=== PATIENT | male | born 1955 | race Caucasian/White ===

== ENCOUNTER 2016-12-31 09:43 | Emergency (ER) | payer OTHER ==
[~2016-12-31] VITALS: Ht 190.5 cm; Wt 101.0 kg
[~2016-12-31 09:43] MED LIST: AMIO200 PO; CETI10 PO; DIVA500T8 PO; FLUV100C PO; FOLI1 PO; OMEP20TA39 PO; TRAZ100T4 PO; [UNRECOGNIZED DRUG - CODE] PO
[2016-12-31 09:45] VITALS: BP 123/68; PULSE 54; RESP 16; TEMP 98.1; O2SAT 98
[2016-12-31] MEDS ORDERED: METO50TA PO (10:04)
[2016-12-31] MEDS ORDERED: FOLI1TAB6 (10:04)
[2016-12-31] MEDS ORDERED: MULTTAB67 PO (10:04)
[2016-12-31] MEDS ORDERED: FLUV1CAP PO (10:04)
[2016-12-31] MEDS ORDERED: TRAZ1TAB45 (10:04)
[2016-12-31] MEDS ORDERED: VITA100T54 PO (10:04)
[2016-12-31] MEDS ORDERED: PRIL20TA2 (10:04)
[2016-12-31] MEDS ORDERED: DEPA500T3 PO (10:04)
[2016-12-31] MEDS ORDERED: CETI10CH CHEW (10:04)
[2016-12-31] MEDS ORDERED: ASPI81CH CHEW (10:04)
[2016-12-31] MEDS ORDERED: IBUP-232 PO (10:04)
[2016-12-31] MEDS ORDERED: SODIUM CHLOR 0.9% 1000 ML INJ 1,000 ML IV SCH (10:37)
--- NOTE | 2016-12-31 10:44 | PD ---
HPI Chief Complaint: GI Complaint Time Seen by Provider: 10:27 Travel History International Travel<30 days: No Contact w/Intl Traveler<30days: No Traveled to known affect area: No History of Present Illness HPI 61-year-old male complains of abdominal pain with nausea. Patient states the symptoms started last night. Patient states the pain cramping pain and sharp pain mostly around the periumbilical area and lower abdomen. Patient denies any pain radiation. Patient denies any fever chills. Patient denies any back pain. Patient has history of diverticulitis, status post exploratory laparotomy with lysis of adhesion, segmental colon resection and low pelvic anastomosis and closure of colostomy in the past. On a scale of 1-10 the pain is an 8. Patient has history of atrial fibrillation. Patient on aspirin 81 mg daily. PFSH Past Medical History Bipolar Disorder: Yes Anxiety: Yes Depression: No Cancer: No Cardiovascular Problems: No Chemotherapy: No Diminished Hearing: No Diverticulitis: Yes Endocrine: No Gastrointestinal Disorders: Yes ( ) Genitourinary: No Immune Disorder: No Musculoskeletal: No Neurologic: No Psychiatric: Yes Reproductive: No Respiratory: No Radiation Therapy: No Past Surgical History Abdominal Surgery: Yes (colon surgery, appendicitis) Appendectomy: Yes Cardiac Surgery: No Ear Surgery: No Endocrine Surgery: No Eye Surgery: No Genitourinary Surgery: No Oral Surgery: No Thoracic Surgery: No Other Surgery: Yes (colostomy reversal) Social History Alcohol Use: No (Hx DAILY) Tobacco Use: No Substance Use: No Allergies-Medications (Allergen,Severity, Reaction): Coded Allergies: No Known Allergies (Verified , 11/27/15) Reported Meds & Prescriptions Reported Meds & Active Scripts Active [place] (Hydrocodone-Acetaminophen) 5-325 mg Tab 1 Tab PO Q6H PRN Reported Trazodone HCl 150 Mg Tablet 200 HS Folic Acid 1 Mg Tablet DAILY Fluvoxamine ER (Fluvoxamine Maleate) 100 Mg Caper 200 Mg PO HS Cetirizine (Cetirizine HCl) 10 Mg Chew 10 Mg CHEW DAILY Depakote ER (Divalproex Sodium) 500 Mg Nancy 1,000 Mg PO HS Ibuprofen 600 Mg Tab 600 Mg PO Q6H PRN Prilosec (Omeprazole Magnesium) 20 Mg Tab DAILY Aspirin 81 Mg Chew 81 Mg CHEW DAILY Metoprolol Tartrate 50 Mg Tab 50 Mg PO DAILY Vitamin B-1 (Thiamine HCl) 100 Mg Tab 100 Mg PO DAILY Multiple Vitamin 1 Tab 1 Tab PO DAILY Review of Systems General / Constitutional: No: Fever Eyes: No: Visual changes HENT: No: Headaches Cardiovascular: No: Chest Pain or Discomfort Respiratory: No: Shortness of Breath Gastrointestinal: Positive: Nausea, Abdominal Pain Genitourinary: No: Dysuria Musculoskeletal: No: Pain Skin: No Rash Neurologic: No: Weakness Psychiatric: No: Depression Endocrine: No: Polydipsia Hematologic/Lymphatic: No: Easy Bruising Physical Exam Narrative GENERAL: Well-nourished, well-developed patient. SKIN: Focused skin assessment warm/dry. HEAD: Normocephalic. EYES: No scleral icterus. No injection or drainage. NECK: Supple, trachea midline. No JVD or lymphadenopathy. CARDIOVASCULAR: Regular rate and rhythm without murmurs, gallops, or rubs. RESPIRATORY: Breath sounds equal bilaterally. No accessory muscle use. GASTROINTESTINAL: Abdomen soft, nondistended. Patient has mild to moderate tenderness on palpation periumbilical area and lower abdomen area. No rebound tenderness. No mass. MUSCULOSKELETAL: No cyanosis, or edema. BACK: Nontender without obvious deformity. No CVA tenderness. Neurologic exam normal. Data Data Last Documented VS Vital Signs Date Time Temp Pulse Resp B/P Pulse Ox O2 Delivery O2 Flow Rate FiO2 12/31/16 12:44 55 20 134/74 95 Room Air 12/31/16 09:45 98.1 Orders Complete Blood Count With Diff (12/31/16 10:37) Comprehensive Metabolic Panel (12/31/16 10:37) Prothrombin Time / Inr (Pt) (12/31/16 10:37) Act Partial Throm Time (Ptt) (12/31/16 10:37) Urinalysis - C+S If Indicated (12/31/16 10:37) Ct Abd/Pel W Iv Contrast(Rout) (12/31/16 10:37) Iv Access Insert/Monitor (12/31/16 10:37) Ecg Monitoring (12/31/16 10:37) Oximetry (12/31/16 10:37) Morphine Inj (Morphine Inj) (12/31/16 10:45) Ondansetron Inj (Zofran Inj) (12/31/16 10:45) Pantoprazole Inj (Protonix Inj) (12/31/16 10:45) Sodium Chlor 0.9% 1000 Ml Inj (Ns 1000 M (12/31/16 10:37) Electrocardiogram (12/31/16 10:37) Morphine Inj (Morphine Inj) (12/31/16 12:15) Iohexol 350 Inj (Omnipaque 350 Inj) (12/31/16 12:33) Labs Laboratory Tests Test 12/31/16 11:00 White Blood Count 8.0 TH/MM3 Red Blood Count 5.56 MIL/MM3 Hemoglobin 15.0 GM/DL Hematocrit 46.1 % Mean Corpuscular Volume 82.9 FL Mean Corpuscular Hemoglobin 27.0 PG Mean Corpuscular Hemoglobin 32.5 % Concent Red Cell Distribution Width 15.3 % Platelet Count 142 TH/MM3 Mean Platelet Volume 7.8 FL Neutrophils (%) (Auto) 79.7 % Lymphocytes (%) (Auto) 14.1 % Monocytes (%) (Auto) 5.5 % Eosinophils (%) (Auto) 0.4 % Basophils (%) (Auto) 0.3 % Neutrophils # (Auto) 6.4 TH/MM3 Lymphocytes # (Auto) 1.1 TH/MM3 Monocytes # (Auto) 0.4 TH/MM3 Eosinophils # (Auto) 0.0 TH/MM3 Basophils # (Auto) 0.0 TH/MM3 CBC Comment DIFF FINAL Differential Comment Prothrombin Time 11.1 SEC Prothromb Time International 1.0 RATIO Ratio Activated Partial 27.3 SEC Thromboplast Time Urine Color YELLOW Urine Turbidity CLEAR Urine pH 5.5 Urine Specific [place] 1.029 Urine Protein TRACE mg/dL Urine Glucose (UA) NEG mg/dL Urine Ketones TRACE mg/dL Urine Occult Blood NEG Urine Nitrite NEG Urine Bilirubin NEG Urine Urobilinogen LESS THAN 2.0 MG/DL Urine Leukocyte Esterase NEG Urine RBC 1 /hpf Urine WBC 1 /hpf Urine Squamous Epithelial <1 /hpf Cells Urine Hyaline Casts 1 /lpf Urine Mucus FEW /lpf Microscopic Urinalysis Comment CULT NOT INDICATED Sodium Level 140 MEQ/L Potassium Level 4.1 MEQ/L Chloride Level 105 MEQ/L Carbon Dioxide Level 29.8 MEQ/L Anion Gap 5 MEQ/L Blood Urea Nitrogen 20 MG/DL Creatinine 0.99 MG/DL Estimat Glomerular Filtration 76 ML/MIN Rate Random Glucose 105 MG/DL Calcium Level 9.1 MG/DL Total Bilirubin 0.4 MG/DL Aspartate Amino Transf 18 U/L (AST/SGOT) Alanine Aminotransferase 24 U/L (ALT/SGPT) Alkaline Phosphatase 53 U/L Total Protein 7.9 GM/DL Albumin 4.1 GM/DL MDM Medical Decision Making Medical Screen Exam Complete: Yes Emergency Medical Condition: Yes Interpretation(s) 12:36 PM. CBC within normal limits. CMP within normal limit. UA is negative. 1318 p.m. Last Impressions Abdomen/Pelvis CT 12/31/16 1037 Signed Impressions: Service Date/Time: Saturday, December 31, 2016 12:27 - CONCLUSION: 1. Liver is decreased in attenuation possibly mild hepatic steatosis. 2. Stable hepatic hypodensities likely benign. 3. Small hiatal hernia. 4. Minimally prominent fluid filled small bowel loops could be enteritis. No definite obstruction. 5. Pelvocaliectasis of the right kidney without obstruction. Teofilo Ireland MD Differential Diagnosis Differential diagnosis including colitis, adhesions, bowel obstruction, abscess , UTI, pyelonephritis, nephrolithiasis. Narrative Course 61-year-old male with low abdominal pain. History of diverticulitis. Status post colostomy with reversal. Normal saline solution 1 25 cc an hour. Morphine 2 mg IV. Zofran 4 mg IV. Protonix 40 mg IV. Diagnosis Primary Impression: Abdominal pain Qualified Code: R10.30 - Lower abdominal pain Additional Impression: Enteritis Patient Instructions: General Instructions Additional Instructions: Take medications as needed for pain. Follow-up with Dr. Martin. Return if persistent abdominal pain, worsening condition, nausea vomiting, fever. Med/Other Pt SpecificInfo: Prescription(s) given Scripts Metronidazole (Flagyl)500 Mg [id number] Mg PO TID #21 TAB Ref 0 Prov:Wong Erazo MD 12/31/16 Hydrocodone-Acetaminophen ([place])5-325 mg Tab1 Tab PO Q6H PRN (PAIN) #20 TAB Prov:Wong Erazo MD 12/31/16 Disposition: 01 DISCHARGE HOME Condition: Stable Wong Erazo MD Dec 31, 2016 10:44
[2016-12-31] MEDS ORDERED: ONDANSETRON HCL 4 MG/2 ML VIAL IVP ONE (10:45)
[2016-12-31] MEDS ORDERED: PANTOPRAZOLE SODIUM 40 MG VIAL IVP ONE (10:45)
[2016-12-31] MEDS ORDERED: MORPHINE SULFATE 4 MG/ML INJ IV PUSH ONE ×2 (10:45→12:15)
[2016-12-31 11:30] LABS: AUTOMATED NEUTROPHIL # 6.4 TH/MM3 (1.8-7.7); BASOPHIL % 0.3 % (0.0-2.0); EOSINOPHIL % 0.4 % (0.0-4.0); HEMATOCRIT 46.1 % (39.0-51.0); HEMO FLAGS DIFF FINAL; LYMPH % 14.1 % (9.0-44.0); LYMPHOCYTE # 1.1 TH/MM3 (1.0-4.8); MEAN CELL VOLUME 82.9 FL (80.0-100.0); MEAN CORPUSCULAR HGB CONC 32.5 % (32.0-36.0); MONO % 5.5 % (0.0-8.0); NEUT % 79.7 % (16.0-70.0); PLATELET COUNT 142 TH/MM3 (150-450); RED BLOOD COUNT 5.56 MIL/MM3 (4.50-5.90); RED CELL DISTRIBUTION WIDTH 15.3 % (11.6-17.2)
[2016-12-31 11:39] LABS: APTT (PATIENT) 27.3 SEC (24.3-30.1); PROTHROMBIN TIME - PATIENT 11.1 SEC (9.8-11.6)
[2016-12-31 11:40] LABS: BLOOD, URINE NEG (NEG); COMMENT (UR) CULT NOT INDICATED; CULTURE IF INDICATED CULT NOT INDICATED; GLUCOSE,URINE NEG (NEG); HYALINE CAST, URINE 1 /lpf (RARE); KETONE, URINE TRACE mg/dL (NEG); MUCUS URINE FEW /lpf (OCC); NITRITE,URINE NEG (NEG); PH, URINE 5.5 (5.0-8.5); SQUAMOUS EPITHELIAL CELL URINE <1 /hpf (0-5); URINE COLOR YELLOW (YELLW/STRAW)
[2016-12-31 11:55] LABS: ANION GAP 5 MEQ/L (5-15); AST (GOT) 18 U/L (15-37); BICARBONATE 29.8 MEQ/L (21.0-32.0); BLOOD UREA NITROGEN 20 MG/DL (7-18); CHLORIDE 105 MEQ/L (98-107); GLOMERULAR FILTRATION RATE 76 ML/MIN (>89); POTASSIUM 4.1 MEQ/L (3.5-5.1); SODIUM (NA) 140 MEQ/L (136-145)
[2016-12-31 11:58] LABS: ALKALINE PHOSPHATASE 53 U/L (45-117); ALT (GPT) 24 U/L (12-78); TOTAL BILIRUBIN ADULT 0.4 MG/DL (0.2-1.0)
[2016-12-31] MEDS ORDERED: IOHEXOL 350 MG/ML 10 ML VIAL (for RAD DIAG) IV ONE (12:33)
[2016-12-31 12:44] VITALS: BP 134/74; PULSE 55; RESP 20; O2SAT 95
--- NOTE | 2016-12-31 12:49 | RADRPT ---
EXAM DATE/TIME: 12/31/2016 12:27 [facility] COMPARISON: CT ABDOMEN & PELVIS W CONTRAST, December 03, 2015, 14:49. INDICATIONS : Periumbilical pain. Nausea. IV CONTRAST: 75 cc Omnipaque 350 (iohexol) IV ORAL CONTRAST: No oral contrast ingested. RADIATION DOSE: 10.23 CTDIvol (mGy) MEDICAL HISTORY : Diverticulitis. SURGICAL HISTORY : Colostomy. Appendectomy.Colostomy reversal. ENCOUNTER: Initial ACUITY: 1 day PAIN SCALE: 8/10 LOCATION: Periumbilical TECHNIQUE: Volumetric scanning of the abdomen and pelvis was performed. Using automated exposure control and ad justment of the mA and/or kV according to patient size, radiation dose was kept as low as reasonably achievable to obtain optimal diagnostic quality images. FINDINGS: LOWER LUNGS: The visualized lower lungs are clear. LIVER: Decreased attenuation with scattered low densities. There is no dilation of the biliary tree. No ca lcified gallstones. No ascites. SPLEEN: Normal size without lesion. PANCREAS: Within normal limits. KIDNEYS: Normal in size and shape. There is no mass, stone or hydronephrosis on the left. Pelvocaliectasis on the right. Bilateral renal low densities likely cysts.. ADRENAL GLANDS: Within normal limits. VASCULAR: There is no aortic aneurysm. BOWEL/MESENTERY: Small hiatal hernia. Anastomotic sutures in the rectosigmoid colon. There are some minimally prominen t fluid filled small bowel loops in the mid to lower abdomen.. There is no free intraperitoneal air or fluid. ABDOMINAL WALL: No hernia. Scarring along the left abdominal wall from previous surgery. RETROPERITONEUM: There is no lymphadenopathy. BLADDER: No wall thickening or mass. REPRODUCTIVE: Within normal limits. INGUINAL: There is no lymphadenopathy or hernia. MUSCULOSKELETAL: Within normal limits for patient age. CONCLUSION: 1. Liver is decreased in attenuation possibly mild hepatic steatosis. 2. Stable hepatic hypodensities likely benign. 3. Small hiatal hernia. 4. Minimally prominent fluid filled small bowel loops could be enteritis. No definite obstruction. 5. Pelvocaliectasis of the right kidney without obstruction. Teofilo Ireland MD on December 31, 2016 at 12:39 Board Certified Radiologist. This report was verified electronically.
[2016-12-31] MEDS ORDERED: NORC5TAB PO (13:28)
[2016-12-31] MEDS ORDERED: METR-1 PO (13:29)
--- NOTE | 2016-12-31 17:03 | EKG ---
Date Performed: 12/31/2016 Time Performed: 11:06:14 PTAGE: 61 years EKG: SINUS BRADYCARDIA WITH OCCASIONAL SUPRAVENTRICULAR PREMATURE COMPLEXES BORDERLINE ECG PREVIOUS TRACING : 12/06/2015 14.06 Compared to previous tracing, sinus bradycardia has replace d atrial fib/flutter, nonspecific T wave changes have resolved. DOCTOR: Timmy Barakat Interpretating Date/Time 12/31/2016 17:03:14
== END 2016-12-31 13:48 | disposition home or self-care (01) ==
LOC: NEPD 09:43
DX: R10.30 Lower abdominal pain, unspecified (principal); K52.9 Noninfective gastroenteritis and colitis, unspecified; R10.33 Periumbilical pain; R94.31 Abnormal electrocardiogram [ECG] [EKG]; I48.91 Unspecified atrial fibrillation; Z79.82 Long term (current) use of aspirin; Z86.59 Personal history of other mental and behavioral disorders; Z87.19 Personal history of other diseases of the digestive system
CPT/HCPCS: 74177; 80053; 81001; 85025; 85610; 85730; 93005; 96361; 96374; 96375; 96376; 99285; C9113; J2270; J2405; J7030; Q9967

== ENCOUNTER 2017-06-20 22:18 | Inpatient (IN) | payer OTHER ==
[~2017-06-20] VITALS: Ht 175.3 cm; Wt 75.0 kg
[~2017-06-20 22:18] MED LIST changes: -AMIO200 PO; +ASPI-516 CHEW; -CETI10 PO; +CETI10CH CHEW; +DEPA500T3 PO; -DIVA500T8 PO; -FLUV100C PO; +FLUV1CAP PO; -FOLI1 PO; +FOLI1TAB6; +IBUP-232 PO; +METO50TA PO; +METR-1 PO; +MULTTAB67 PO; +NORC5TAB PO; -OMEP20TA39 PO; +PRIL20TA2; -TRAZ100T4 PO; +TRAZ1TAB14; +VITA100T54 PO; -[UNRECOGNIZED DRUG - CODE] PO
[2017-06-20 22:20] VITALS: BP 124/85; PULSE 68; RESP 16; TEMP 99.2; O2SAT 95
[2017-06-20 22:41] VITALS: BP 126/92; PULSE 64; RESP 16; O2SAT 97
[2017-06-20] MEDS ORDERED: ALUMINUM/MAGNESIUM/SIMETH 30 ML CUP PO ONE (23:00)
[2017-06-20] MEDS ORDERED: LIDOCAINE VISCOUS 2% SOLN 15 ML UDC SWISH-SWAL ONE (23:00)
--- NOTE | 2017-06-20 23:02 | PD ---
HPI Chief Complaint: Abdominal Pain Time Seen by Provider: 22:37 Travel History International Travel<30 days: No Contact w/Intl Traveler<30days: No Traveled to known affect area: No History of Present Illness HPI Patient is a 61-year-old male, presenting with abdominal pain 2 days took motrin without relief. dull ache , similiar to the pain he had with his diverticultis ,, 2 years ago pt had diverticulitis surgery had a colostomy and then a takedown. Patient now has 2 days of local pain .The pain which is severe not relieved by Motrin. It's localized it does not radiate. It is 7 out of 10. Patient has no other medical history except appendicitis at the age of 5. PFSH Past Medical History Bipolar Disorder: Yes Anxiety: Yes Depression: No Cancer: No Cardiovascular Problems: No Chemotherapy: No Diminished Hearing: No Diverticulitis: Yes Endocrine: No Gastrointestinal Disorders: Yes ( ) Genitourinary: No Immune Disorder: No Implanted Vascular Access Dvce: No Musculoskeletal: No Neurologic: No Psychiatric: Yes Reproductive: No Respiratory: No Immunizations Current: Yes Radiation Therapy: No Tetanus Vaccination: < 5 Years Influenza Vaccination: Yes Past Surgical History Abdominal Surgery: Yes (colon surgery, appendicitis) Appendectomy: Yes Cardiac Surgery: No Ear Surgery: No Endocrine Surgery: No Eye Surgery: No Genitourinary Surgery: No Neurologic Surgery: No Oral Surgery: No Thoracic Surgery: No Other Surgery: Yes (colostomy reversal) Social History Alcohol Use: No (Hx DAILY) Tobacco Use: No Substance Use: No Allergies-Medications (Allergen,Severity, Reaction): Coded Allergies: No Known Allergies (Verified Allergy, Unknown, 06/21/17) Reported Meds & Prescriptions Reported Meds & Active Scripts Active Reported Trazodone (Trazodone HCl) 150 Mg Tablet 200 HS Folic Acid 1 Mg Tablet DAILY Fluvoxamine ER (Fluvoxamine Maleate) 100 Mg Caper 200 Mg PO HS Cetirizine (Cetirizine HCl) 10 Mg Chew 10 Mg CHEW DAILY Depakote ER (Divalproex Sodium) 500 Mg Nancy 1,000 Mg PO HS Ibuprofen 600 Mg Tab 600 Mg PO Q6H PRN Prilosec (Omeprazole Magnesium) 20 Mg Tab DAILY Aspirin 81 Mg Chew 81 Mg CHEW DAILY Metoprolol Tartrate 50 Mg Tab 50 Mg PO DAILY Vitamin B-1 (Thiamine HCl) 100 Mg Tab 100 Mg PO DAILY Multiple Vitamin 1 Tab 1 Tab PO DAILY Review of Systems Except as stated in HPI: all other systems reviewed are Neg Gastrointestinal: Positive: Nausea, Abdominal Pain, Changes in Bowel Habits, Loss of Appetite Physical Exam Narrative GENERAL: Patient is nontoxic in no distress but appears uncomfortable. SKIN: Warm and dry. HEAD: Atraumatic. Normocephalic. EYES: Pupils equal and round. No scleral icterus. No injection or drainage. ENT: No nasal bleeding or discharge. Mucous membranes pink and moist. NECK: Trachea midline. No JVD. CARDIOVASCULAR: Regular rate and rhythm. RESPIRATORY: No accessory muscle use. Clear to auscultation. Breath sounds equal bilaterally. GASTROINTESTINAL: Abdomen has mild distention around the periumbilical area. I see a hypoumbilical horizontal healed surgical scar that goes across the entire lower abdomen in a horizontal from right lower to left lower well-healed , no signs of wound involvement Abdo is moderately distended. Hepatic and splenic margins not palpable. MUSCULOSKELETAL: Extremities without clubbing, cyanosis, or edema. No obvious deformities. NEUROLOGICAL: Awake and alert. No obvious cranial nerve deficits. Motor grossly within normal limits. Five out of 5 muscle strength in the arms and legs. Normal speech. PSYCHIATRIC: Appropriate mood and affect; insight and judgment normal. Data Data Last Documented VS Orders Orders Complete Blood Count With Diff (06/20/17 22:53) Comprehensive Metabolic Panel (06/20/17 22:53) Troponin I (06/20/17 22:53) Lipase (06/20/17 22:53) Al-Mag Hy-Si 40-40-4 Mg/Ml Liq (Mag-Al P (06/20/17 23:00) Lidocaine 2% Viscous (Xylocaine 2% Visco (06/20/17 23:00) Pantoprazole Inj (Protonix Inj) (06/20/17 23:15) Morphine Inj (Morphine Inj) (06/20/17 23:45) Ct Abd/Pel W Iv Contrast(Rout) (06/20/17 ) Oral Contrast - Adult (06/20/17 23:50) Diatrizoate Liq ( [place]astro[place] Liq) (06/21/17 00:13) Iohexol 350 Inj (Omnipaque 350 Inj) (06/21/17 01:43) NPO (06/21/17 05:06) Dext 5%-Nacl 0.45% 1000 Ml Inj (D5w-1/2 (06/21/17 05:15) Morphine Inj (Morphine Inj) (06/21/17 05:15) Ondansetron Inj (Zofran Inj) (06/21/17 05:15) Place In Observation (06/21/17 ) Vital Signs (Adult) Q4H (06/21/17 05:19) Activity Oob With Assistance (06/21/17 05:19) Bedside Glucose HAYDEE.CSUGAR (06/21/17 05:19) Diet Npo (06/21/17 Breakfast) Sodium Chloride 0.9% Flush (Ns Flush) (06/21/17 05:30) Sodium Chloride 0.9% Flush (Ns Flush) (06/21/17 09:00) Acetaminophen (Tylenol) (06/21/17 05:30) Ondansetron Inj (Zofran Inj) (06/21/17 05:30) Basic Metabolic Panel (Bmp) (06/22/17 06:00) Complete Blood Count With Diff (06/22/17 06:00) Case Management Consult (06/21/17 05:19) Scd Bilateral/Knee High HAYDEE.BID (06/21/17 05:19) Naloxone Inj (Narcan Inj) (06/21/17 05:30) Docusate Sodium-Senna (Evelyn-Colace) (06/21/17 09:00) Magnesium Hydroxide Liq (Milk Of Magnesi (06/21/17 05:30) Sennosides (Senokot) (06/21/17 05:30) Bisacodyl Supp (Dulcolax Supp) (06/21/17 05:30) Lactulose Liq (Lactulose Liq) (06/21/17 05:30) Admit Order (Ed Use Only) (06/21/17 05:20) Labs Laboratory Tests Test 06/20/17 22:14 White Blood Count 8.6 TH/MM3 Red Blood Count 5.67 MIL/MM3 Hemoglobin 16.8 GM/DL Hematocrit 48.4 % Mean Corpuscular Volume 85.3 FL Mean Corpuscular Hemoglobin 29.6 PG Mean Corpuscular Hemoglobin Concent 34.7 % Red Cell Distribution Width 14.0 % Platelet Count 164 TH/MM3 Mean Platelet Volume 8.0 FL Neutrophils (%) (Auto) 70.8 % Lymphocytes (%) (Auto) 17.2 % Monocytes (%) (Auto) 11.0 % Eosinophils (%) (Auto) 0.6 % Basophils (%) (Auto) 0.4 % Neutrophils # (Auto) 6.1 TH/MM3 Lymphocytes # (Auto) 1.5 TH/MM3 Monocytes # (Auto) 1.0 TH/MM3 Eosinophils # (Auto) 0.1 TH/MM3 Basophils # (Auto) 0.0 TH/MM3 CBC Comment AUTO DIFF Differential Comment AUTO DIFF CONFIRMED Platelet Estimate NORMAL Platelet Morphology Comment NORMAL Red Cell Morphology Comment NORMAL Blood Urea Nitrogen 30 MG/DL Creatinine 1.29 MG/DL Random Glucose 107 MG/DL Total Protein 8.4 GM/DL Albumin 4.2 GM/DL Calcium Level 9.3 MG/DL Alkaline Phosphatase 69 U/L Aspartate Amino Transf (AST/SGOT) 20 U/L Alanine Aminotransferase (ALT/SGPT) 24 U/L Total Bilirubin 0.9 MG/DL Sodium Level 134 MEQ/L Potassium Level 3.8 MEQ/L Chloride Level 98 MEQ/L Carbon Dioxide Level 28.7 MEQ/L Anion Gap 7 MEQ/L Estimat Glomerular Filtration Rate 56 ML/MIN Troponin I LESS THAN 0.02 NG/ML Lipase 97 U/L [facility] Medical Decision Making Medical Screen Exam Complete: Yes Emergency Medical Condition: Yes Differential Diagnosis diverticulitis versus gastritis versus small bowel obstruction versus cholecystitis versus viral gastro-enteritis Narrative Course CT shows what looks like ileus versus small bowel obstruction but there is no transition point seen I tried to treat him initially with anti-acids which Maalox viscous lidocaine and Protonix IV with moderate improvement but he still had the pain and ache in his perineal area. CAT scan is done morphine was given and then CAT scan shows ileus versus SBO no transition seen I give him D5 half-normal at 100 cc an hour make him nothing by mouth and admitted for conservative management of possible ileus versus small bowel obstruction Diagnosis Primary Impression: Abdominal pain Qualified Codes: R10.9 - Unspecified abdominal pain Additional Impression: Ileus Admitting Information Admitting Physician Requests: Admit Scripts Ciprofloxacin (Cipro) 500 Mg Tab 500 MG PO BID for Infection, #20 TAB 0 Refills Prov: Garrick Parks MD 06/25/17 Metronidazole (Flagyl) 500 Mg Tab 500 MG PO TID for Infection, #30 TAB 0 Refills Prov: Garrick Parks MD 06/25/17 Hydrocodone-Acetaminophen ([place]) 5-325 mg Tab 1 TAB PO Q6H Y for PAIN, #12 TAB 0 Refills DO NOT USE THIS MEDICINE IF YOU WILL DRIVE A CAR OR USE A MACHINE, ONLY USE IT WHEN RESTING AT HOME. Prov: Garrick Parks MD 06/25/17 Roberto Taylor MD Jun 20, 2017 23:02
[2017-06-20] MEDS ORDERED: PANTOPRAZOLE SODIUM 40 MG VIAL IV PUSH ONE (23:15)
[2017-06-20 23:41] LABS: AUTOMATED NEUTROPHIL # 6.1 TH/MM3 (1.8-7.7); BASOPHIL % 0.4 % (0.0-2.0); EOSINOPHIL # 0.1 TH/MM3 (0-0.4); EOSINOPHIL % 0.6 % (0.0-4.0); HEMATOCRIT 48.4 % (39.0-51.0); LYMPH % 17.2 % (9.0-44.0); LYMPHOCYTE # 1.5 TH/MM3 (1.0-4.8); MEAN CELL VOLUME 85.3 FL (80.0-100.0); MEAN CORPUSCULAR HEMOGLOBIN 29.6 PG (27.0-34.0); MEAN CORPUSCULAR HGB CONC 34.7 % (32.0-36.0); NEUT % 70.8 % (16.0-70.0); PLATELET COUNT 164 TH/MM3 (150-450); RED BLOOD COUNT 5.67 MIL/MM3 (4.50-5.90); WHITE BLOOD COUNT 8.6 TH/MM3 (4.0-11.0)
[2017-06-20 23:43] LABS: HEMO FLAGS AUTO DIFF
[2017-06-20] MEDS ORDERED: MORPHINE SULFATE 4 MG/ML INJ IV PUSH ONE (23:45)
[2017-06-21] VITALS (8 sets, daily range): BP systolic 106–120; BP diastolic 63–80; PULSE 59–106; RESP 17–18; TEMP 96.8–98.1; O2SAT 94–96
[2017-06-21 00:09] LABS: ANION GAP 7 MEQ/L (5-15); AST (GOT) 20 U/L (15-37); BICARBONATE 28.7 MEQ/L (21.0-32.0); BLOOD UREA NITROGEN 30 MG/DL (7-18); CHLORIDE 98 MEQ/L (98-107); GLOMERULAR FILTRATION RATE 56 ML/MIN (>89); POTASSIUM 3.8 MEQ/L (3.5-5.1); SODIUM (NA) 134 MEQ/L (136-145)
[2017-06-21 00:10] LABS: ALT (GPT) 24 U/L (12-78)
[2017-06-21 00:12] LABS: PLATELET ESTIMATE SMEAR NORMAL (NORMAL); PLATELET MORPHOLOGY NORMAL (NORMAL); SCAN/DIFF AUTO DIFF CONFIRMED
[2017-06-21] MEDS ORDERED: DIATRIZOATE MEGLUM/DIATRIZOATE SOD 9 ML CUP ONE (00:13)
[2017-06-21 00:14] LABS: ALKALINE PHOSPHATASE 69 U/L (45-117); TOTAL BILIRUBIN ADULT 0.9 MG/DL (0.2-1.0)
[2017-06-21] MEDS ORDERED: IOHEXOL 350 MG/ML 10 ML VIAL (for RAD DIAG) IVCONTRAST ONE (01:43)
--- NOTE | 2017-06-21 01:59 | RADRPT ---
EXAM DATE/TIME: 06/21/2017 01:39 [facility] COMPARISON: CT ABDOMEN & PELVIS W CONTRAST, December 31, 2016, 12:27. INDICATIONS : Mid abdominal pain; possible diverticulitis. IV CONTRAST: 96 cc Omnipaque 350 (iohexol) IV ORAL CONTRAST: Prescribed oral contrast ingested. RADIATION DOSE: 13.39 CTDIvol (mGy) MEDICAL HISTORY : Diverticulitis. SURGICAL HISTORY : Appendectomy. Colon resection.Colostomy. ENCOUNTER: Initial ACUITY: 1 day PAIN SCALE: 5/10 LOCATION: abdomen TECHNIQUE: Volumetric scanning of the abdomen and pelvis was performed. Using automated exposure control and ad justment of the mA and/or kV according to patient size, radiation dose was kept as low as reasonably achievable to obtain optimal diagnostic quality images. DICOM format image data is available electro nically for review and comparison. FINDINGS: Lung bases are clear. Degenerative changes of the spine are noted. There is a large hiatal hernia, he patic steatosis, and stable low-density liver lesions. Spleen, pancreas, adrenals are unremarkable. T here is a small cyst at the upper pole of the left kidney. Urinary bladder and prostate are unremarka ble. The patient has had previous surgery to the sigmoid colon with an anastomotic line present. The large bowel fluid-filled, and there are fluid filled loops of small bowel present. There are distende d loops of small intestine identified in the mid abdomen, measuring up to 4.6 cm. A well-defined lowe sition point is not seen however distal loops are decompressed. CONCLUSION: Abnormal dilated loops of small bowel are identified without well-defined transition point however di stal loops are decompressed and the findings can be seen with an ileus or developing small bowel obst ruction. Dereje Amezcua MD on June 21, 2017 at 1:55 Board Certified Radiologist. This report was verified electronically.
[2017-06-21] MEDS ORDERED: MORPHINE SULFATE 2 MG/ML INJ IV PUSH ONE (05:15)
[2017-06-21] MEDS ORDERED: ONDANSETRON HCL 4 MG/2 ML VIAL IV PUSH ONE (05:15)
[2017-06-21] MEDS ORDERED: LACTULOSE SYRUP 20 GM/30 ML CUP PO PRN (05:30)
[2017-06-21] MEDS ORDERED: NALOXONE HCL 0.4 MG/ML AMP IV PUSH PRN (05:30)
[2017-06-21] MEDS ORDERED: BISACODYL 10 MG SUPP RECTAL PRN (05:30)
[2017-06-21] MEDS ORDERED: ONDANSETRON HCL 4 MG/2 ML VIAL IVP PRN (05:30)
[2017-06-21] MEDS ORDERED: MAGNESIUM HYDROXIDE SUSP 30 ML CUP PO PRN (05:30)
[2017-06-21] MEDS ORDERED: SODIUM CHLORIDE 0.9% FLUSH 10 ML FLUSH IV FLUSH PRN (05:30)
[2017-06-21] MEDS ORDERED: SENNOSIDES 8.6 MG TAB PO PRN (05:30)
[2017-06-21] MEDS: DEXT 5%-NACL 0.45% 1000 ML INJ 1,000 ML IV SCH ×2 (05:34→15:15)
[2017-06-21] MEDS: SODIUM CHLORIDE 0.9% FLUSH 10 ML FLUSH IV FLUSH SCH ×2 (09:00→22:06)
[2017-06-21] MEDS: DOCUSATE SODIUM 50 MG/SENNA 8.6 MG TAB PO SCH ×2 (09:00→22:07)
--- NOTE | 2017-06-21 11:38 | HHI.HP ---
HPI Service [facility] Primary [facility] Physician Noah Martin MD Admission Diagnosis ileus vs SBO Diagnoses: Chief Complaint: Abdominal pain Travel History International Travel<30 Days: No Contact w/Intl Traveler <30 Da: No Traveled to Known Affected Are: No History of Present Illness The patient is a 61-year-old male with a past medical history of diverticulitis status post colostomy and reversal who is presenting to the hospital with abdominal pain and constipation. The patient says that about a year and a half ago he had diverticulitis and had to have a colostomy placed. That has since been reversed. He says recently he has had another abdominal infection which was treated with antibiotics. He said that on Friday night he had a salad with small items and it and after that his stomach started to get swollen. He had abdominal pain in the lower portion of his stomach that he rates as a 5 out of 10 that is rather constant. He has been constipated since then as well. He has not been passing any gas. He does endorse nausea. He feels like he has had fevers on and off but has not measured his temperature. Review of Systems Except as stated in HPI: all other systems reviewed are Neg Past Family Social History Past Medical History Diverticulitis status post colostomy placement and reversal Atrial fibrillation Depression Past Surgical History Appendectomy Allergies: Coded Allergies: No Known Allergies (Verified Allergy, Unknown, 06/21/17) Active Ordered Medications Current Medications Medications (Trade) Dose Ordered Sig/Salvatore Route Start Time Stop Time Status Last Admin Dextrose/Sodium Chloride 1,000 ml @ 100 mls/hr Q10H IV 06/21/17 05:15 06/21/17 05:34 (NS Flush) 2 ml UNSCH PRN IV FLUSH 06/21/17 05:30 (NS Flush) 2 ml BID IV FLUSH 06/21/17 09:00 (Tylenol) 650 mg Q4H PRN PO 06/21/17 05:30 (Zofran Inj) 4 mg Q6H PRN IVP 06/21/17 05:30 (Narcan Inj) 0.4 mg UNSCH PRN IV PUSH 06/21/17 05:30 (Evelyn-Colace) 1 tab BID PO 06/21/17 09:00 06/21/17 09:00 (Milk Of Magnesia Liq) 30 ml Q12H PRN PO 06/21/17 05:30 (Senokot) 17.2 mg Q12H PRN PO 06/21/17 05:30 (Dulcolax Supp) 10 mg DAILY PRN RECTAL 06/21/17 05:30 (Lactulose Liq) 30 ml DAILY PRN PO 06/21/17 05:30 (Pneumovax-23 Inj) 25 mcg ONCE ONCE IM 06/22/17 10:00 06/22/17 10:01 (Aspirin Chew) 81 mg DAILY CHEW 06/22/17 09:00 UNV (ZyrTEC) 10 mg DAILY PO 06/22/17 09:00 UNV (Depakote Er) 1,000 mg HS PO 06/21/17 21:00 UNV (Lopressor) 50 mg DAILY PO 06/22/17 09:00 UNV Non-Formulary Medication 200 mg HS PO 06/21/17 21:00 UNV (Desyrel) 100 mg HS PO 06/21/17 21:00 UNV (Protonix) 40 mg DAILY PO 06/22/17 09:00 UNV Family History The patient denies pertinent family history Social History The patient does not smoke, drink or use illicit substances. Physical Exam Vital Signs Vital Signs Date Time Temp Pulse Resp B/P (MAP) Pulse Ox O2 Delivery O2 Flow Rate FiO2 06/21/17 08:15 97.8 106 18 106/73 (84) 96 06/21/17 06:17 61 16 114/76 (89) 95 06/20/17 22:41 64 16 126/92 (103) 97 Room Air 06/20/17 22:20 99.2 68 16 124/85 (98) 95 Room Air Physical Exam GENERAL: Resting comfortably. SKIN: Warm and dry. HEAD: Atraumatic. Normocephalic. EYES: Pupils equal and round. No scleral icterus. No injection or drainage. ENT: No nasal bleeding or discharge. Mucous membranes pink and moist. NECK: Trachea midline. No JVD. CARDIOVASCULAR: Regular rate and rhythm. No murmur appreciated. RESPIRATORY: No accessory muscle use. Clear to auscultation. Breath sounds equal bilaterally. GASTROINTESTINAL: Abdomen has mild distention. Mildly tender to palpation of the lower abdomen. No guarding or rebound. Decreased bowel sounds. MUSCULOSKELETAL: Extremities without clubbing, cyanosis, or edema. No obvious deformities. NEUROLOGICAL: Awake and alert. No obvious cranial nerve deficits. Motor grossly within normal limits. Five out of 5 muscle strength in the arms and legs. Normal speech. PSYCHIATRIC: Appropriate mood and affect; insight and judgment normal. Laboratory Laboratory Tests Test 06/20/17 22:14 White Blood Count 8.6 Red Blood Count 5.67 Hemoglobin 16.8 Hematocrit 48.4 Mean Corpuscular Volume 85.3 Mean Corpuscular Hemoglobin 29.6 Mean Corpuscular Hemoglobin Concent 34.7 Red Cell Distribution Width 14.0 Platelet Count 164 Mean Platelet Volume 8.0 Neutrophils (%) (Auto) 70.8 Lymphocytes (%) (Auto) 17.2 Monocytes (%) (Auto) 11.0 Eosinophils (%) (Auto) 0.6 Basophils (%) (Auto) 0.4 Neutrophils # (Auto) 6.1 Lymphocytes # (Auto) 1.5 Monocytes # (Auto) 1.0 Eosinophils # (Auto) 0.1 Basophils # (Auto) 0.0 CBC Comment AUTO DIFF Differential Comment AUTO DIFF CONFIRMED Platelet Estimate NORMAL Platelet Morphology Comment NORMAL Red Cell Morphology Comment NORMAL Blood Urea Nitrogen 30 Creatinine 1.29 Random Glucose 107 Total Protein 8.4 Albumin 4.2 Calcium Level 9.3 Alkaline Phosphatase 69 Aspartate Amino Transf (AST/SGOT) 20 Alanine Aminotransferase (ALT/SGPT) 24 Total Bilirubin 0.9 Sodium Level 134 Potassium Level 3.8 Chloride Level 98 Carbon Dioxide Level 28.7 Anion Gap 7 Estimat Glomerular Filtration Rate 56 Troponin I LESS THAN 0.02 Lipase 97 Result Diagram: 06/20/174 06/20/17 2214 Imaging Last Impressions Abdomen/Pelvis CT 06/20/17 0000 Signed Impressions: Service Date/Time: Wednesday, June 21, 2017 01:39 - CONCLUSION: Abnormal dilated loops of small bowel are identified without well-defined transition point however distal loops are decompressed and the findings can be seen with an ileus or developing small bowel obstruction. MD Carmen Dave VTE Risk Assessment Caprini VTE Risk Assessment: Mod/High Risk (score >= 2) Caprini Risk Assessment Model Point Value = 1 Point Value = 2 Point Value = 3 Point Value = 5 Age 41-60 Minor surgery BMI > 25 kg/m2 Swollen legs Varicose veins or History of unexplained or recurrent spontaneous Oral contraceptives or hormone replacement Sepsis (< 1 month) Serious lung disease, including pneumonia (< 1 month) Abnormal pulmonary function Acute myocardial infarction Congestive heart failure (< 1 month) History of inflammatory bowel disease Medical patient at bed rest Age 61-74 Arthroscopic surgery Major open surgery (> 45 min) Laparoscopic surgery (> 45 min) Malignancy Confined to bed (> 72 hours) Immobilizing plaster cast Central venous access Age >= 75 History of VTE Family history of VTE Factor V Leiden Prothrombin [id number] Lupus anticoagulant Anticardiolipin antibodies Elevated serum homocysteine Heparin-induced thrombocytopenia Other congenital or acquired thrombophilia Stroke (< 1 month) Elective arthroplasty Hip, pelvis, or leg fracture Acute spinal cord injury (< 1 month) Prophylaxis Regimen Total Risk Factor Score Risk Level Prophylaxis Regimen 0-1 Low Early ambulation 2 Moderate Order ONE of the following: *Sequential Compression Device (SCD) *Heparin 5000 units SQ BID 3-4 Higher Order ONE of the following medications: *Heparin 5000 units SQ TID *Enoxaparin/Lovenox 40 mg SQ daily (WT < 150 kg, CrCl > 30 mL/min) *Enoxaparin/Lovenox 30 mg SQ daily (WT < 150 kg, CrCl > 10-29 mL/min) *Enoxaparin/Lovenox 30 mg SQ BID (WT < 150 kg, CrCl > 30 mL/min) AND/OR *Sequential Compression Device (SCD) 5 or more Highest Order ONE of the following medications: *Heparin 5000 units SQ TID (Preferred with Epidurals) *Enoxaparin/Lovenox 40 mg SQ daily (WT < 150 kg, CrCl > 30 mL/min) *Enoxaparin/Lovenox 30 mg SQ daily (WT < 150 kg, CrCl > 10-29 mL/min) *Enoxaparin/Lovenox 30 mg SQ BID (WT < 150 kg, CrCl > 30 mL/min) AND *Sequential Compression Device (SCD) Assessment and Plan Assessment and Plan Ileus/ SBO The patient has a history of diverticulitis status post colostomy placement and reversal of colostomy. He presents with abdominal pain, distention and constipation. CT scan showed: Abnormal dilated loops of small bowel are identified without well-defined transition point however distal loops are decompressed and the findings can be seen with an ileus or developing small bowel obstruction. - keep the pt NPO with IVFs. - pain control with IV morphine. - Antiemetics as needed. - Consult colorectal surgery. Atrial fibrillation Seems to be paroxysmal, related to his surgery for diverticulitis. - Continue Lopressor. - Telemetry. PPx: SCDs Code Status Full Discussed Condition With Pt Nixon eNwell DO Jun 21, 2017 11:38
[2017-06-21] MEDS: METOPROLOL TARTRATE 50 MG TAB PO SCH (13:03)
[2017-06-21] MEDS: MORPHINE SULFATE 4 MG/ML INJ IV PUSH PRN ×4 (13:03→22:10)
[2017-06-21] MEDS: PANTOPRAZOLE SOD 40 MG DELAYED RELEASE TAB PO SCH (13:03)
[2017-06-21] MEDS: CETIRIZINE HCL 10 MG TAB PO SCH (13:03)
[2017-06-21] MEDS: ASPIRIN 81 MG CHEW TAB CHEW SCH (13:08)
--- NOTE | 2017-06-21 18:38 | MB ---
cc: MAYLIN ANSARI MD DATE OF CONSULTATION: 06/21/2017. HISTORY OF PRESENT ILLNESS: This is a 61-year-old who has a history of diverticulitis surgery approximately a year and a half ago. He was treated with a sigmoid resection, colostomy and Rimma pouch. In the fall of 2015, Dr. Martin reversed the colostomy. On June 19 the patient noted onset of severe crampy abdominal pain which began after eating some salad and carrots. There were also several family members in his household who were ill with vomiting illness in addition. The patient did begin vomiting also. He has had cessation of bowel movements. As he did not improve with time, he presented to the emergency room on the [address] scan at that time showed some dilation of mid small bowel loops. Since he has been in the hospital, the crampy abdominal pains have ceased and the vomiting has ceased. He has some steady discomfort in the abdomen. The patient did have one bowel movement since admission to the hospital. PAST MEDICAL HISTORY: Atrial fibrillation. MEDICATIONS: He currently takes aspirin and Protonix. PHYSICAL EXAMINATION: GENERAL: On exam he is alert without distress. LUNGS: Respirations normal. SKIN: Skin is warm and dry. ABDOMEN: His abdomen is soft and nontender. He feels some pressure when pressing over the central abdomen. RECTAL: Exam is not performed. LABORATORY: Acceptable CBC and chemistries. ASSESSMENT: Small bowel obstruction versus gastroenteritis. PLAN: The patient will be treated conservatively with IV fluids. He will remain NPO and an NG tube may be required if there is further vomiting. A follow up abdominal x-ray will be obtained in the morning. MD BAILEY Mittal/BREANN /6:07 PM /6:23 PM ALEXANDRO
[2017-06-21] MEDS ORDERED: FLUVOXAMINE 200 MG PO SCH (21:00)
[2017-06-21] MEDS: traZODone HCL 100 MG TAB PO SCH (22:07)
[2017-06-21] MEDS: DIVALPROEX SODIUM E.R. 500 MG TAB PO SCH (22:07)
[2017-06-22] VITALS (8 sets, daily range): BP systolic 110–129; BP diastolic 57–74; PULSE 59–87; RESP 17–20; TEMP 97.9–104; O2SAT 92–97
[2017-06-22] MEDS: MORPHINE SULFATE 4 MG/ML INJ IV PUSH PRN ×5 (02:03→21:30)
[2017-06-22] MEDS: DEXT 5%-NACL 0.45% 1000 ML INJ 1,000 ML IV SCH ×3 (02:04→21:15)
[2017-06-22 03:43] LABS: AUTOMATED NEUTROPHIL # 3.1 TH/MM3 (1.8-7.7); BASOPHIL % 0.7 % (0.0-2.0); EOSINOPHIL # 0.2 TH/MM3 (0-0.4); EOSINOPHIL % 4.4 % (0.0-4.0); HEMO FLAGS DIFF FINAL; LYMPH % 22.3 % (9.0-44.0); LYMPHOCYTE # 1.2 TH/MM3 (1.0-4.8); MEAN CELL VOLUME 85.3 FL (80.0-100.0); MEAN CORPUSCULAR HEMOGLOBIN 29.8 PG (27.0-34.0); MEAN CORPUSCULAR HGB CONC 34.9 % (32.0-36.0); MONO % 13.6 % (0.0-8.0); PLATELET COUNT 114 TH/MM3 (150-450); RED BLOOD COUNT 4.92 MIL/MM3 (4.50-5.90); RED CELL DISTRIBUTION WIDTH 13.9 % (11.6-17.2); WHITE BLOOD COUNT 5.3 TH/MM3 (4.0-11.0)
[2017-06-22 04:11] LABS: BICARBONATE 29.9 MEQ/L (21.0-32.0); POTASSIUM 3.5 MEQ/L (3.5-5.1)
--- NOTE | 2017-06-22 06:37 | RADRPT ---
EXAM DATE/TIME: 06/22/2017 05:59 [facility] COMPARISON: CT ABDOMEN & PELVIS W CONTRAST, June 21, 2017, 1:39. INDICATIONS : Pain and distention middle lower abdomen. MEDICAL HISTORY : Diverticulitis. SURGICAL HISTORY : Appendectomy. Colon resection. Colostomy. Colostomy reversal ENCOUNTER: Subsequent ACUITY: 2 days PAIN SCORE: 6/10 LOCATION: Bilateral lower quadrant FINDINGS: Supine and upright views of the abdomen were performed. The abdominal bowel gas pattern is normal. No air fluid levels are seen. No abnormal masses, calcifications, or organomegaly is seen. The visu alized lower lungs are clear. No evidence of free intraperitoneal gas. The osseous structures are u nremarkable. There is residual contrast in the large bowel. CONCLUSION: Normal examination. Dereje Amezcua MD on June 22, 2017 at 6:34 Board Certified Radiologist. This report was verified electronically.
[2017-06-22] MEDS ORDERED: ASPIRIN 81 MG CHEW TAB CHEW SCH (09:00)
[2017-06-22] MEDS ORDERED: CETIRIZINE HCL 10 MG TAB PO SCH (09:00)
[2017-06-22] MEDS: SODIUM CHLORIDE 0.9% FLUSH 10 ML FLUSH IV FLUSH SCH ×2 (09:00→21:28)
[2017-06-22] MEDS ORDERED: PANTOPRAZOLE SOD 40 MG DELAYED RELEASE TAB PO SCH (09:00)
[2017-06-22] MEDS ORDERED: METOPROLOL TARTRATE 50 MG TAB PO SCH (09:00)
[2017-06-22] MEDS: METOPROLOL TARTRATE 50 MG TAB PO SCH (09:26)
[2017-06-22] MEDS: CETIRIZINE HCL 10 MG TAB PO SCH (09:26)
[2017-06-22] MEDS: ASPIRIN 81 MG CHEW TAB CHEW SCH (09:26)
[2017-06-22] MEDS: DOCUSATE SODIUM 50 MG/SENNA 8.6 MG TAB PO SCH ×2 (09:26→21:29)
[2017-06-22] MEDS: PANTOPRAZOLE SOD 40 MG DELAYED RELEASE TAB PO SCH (09:27)
[2017-06-22] MEDS ORDERED: INFLUENZA VIRUS VACCINE (QUADRIVALENT) 0.5 ML SYR IM ONE (10:00)
[2017-06-22] MEDS ORDERED: PNEUMOCOCCAL POLYVALENT INJ 25 MCG/0.5 ML SYR IM ONE (10:00)
[2017-06-22] MEDS ORDERED: POTASSIUM CHLORIDE 25 MEQ EFFERVESCENT TAB PO ONE (13:00)
--- NOTE | 2017-06-22 14:35 | HHI.PR ---
Subjective Remarks The patient was feeling better. He has been passing a little bit of gas. He is tolerating a clear liquid diet at this time. He says his pain is improved. Objective Vitals Vital Signs Date Time Temp Pulse Resp B/P (MAP) Pulse Ox O2 Delivery O2 Flow Rate FiO2 06/22/17 12:17 97.9 20 112/62 (79) 97 06/22/17 07:25 99.5 59 18 110/57 (74) 95 06/22/17 06:30 20 06/22/17 03:49 85 06/22/17 03:15 98.1 75 17 116/74 (88) 94 06/22/17 00:09 63 06/21/17 23:48 97.9 59 17 106/66 (79) 94 06/21/17 20:17 59 06/21/17 20:02 98.1 60 18 120/75 (90) 94 06/21/17 18:19 64 06/21/17 15:53 96.8 60 18 110/63 (79) 96 Result Diagram: 06/22/17 0318 06/22/17 0318 Imaging Last Impressions Abdomen X-Ray 06/22/17 0600 Signed Impressions: Service Date/Time: Thursday, June 22, 2017 05:59 - CONCLUSION: Normal examination. Dereje Amezcua MD Abdomen/Pelvis CT 06/20/17 0000 Signed Impressions: Service Date/Time: Wednesday, June 21, 2017 01:39 - CONCLUSION: Abnormal dilated loops of small bowel are identified without well-defined transition point however distal loops are decompressed and the findings can be seen with an ileus or developing small bowel obstruction. Dereje Amezcua MD Objective Remarks GENERAL: Resting comfortably. SKIN: Warm and dry. HEAD: Atraumatic. Normocephalic. EYES: Pupils equal and round. No scleral icterus. No injection or drainage. ENT: No nasal bleeding or discharge. Mucous membranes pink and moist. NECK: Trachea midline. No JVD. CARDIOVASCULAR: Regular rate and rhythm. No murmur appreciated. RESPIRATORY: No accessory muscle use. Clear to auscultation. Breath sounds equal bilaterally. GASTROINTESTINAL: Abdomen has mild distention. Nontender. No guarding or rebound. Normal bowel sounds. MUSCULOSKELETAL: Extremities without clubbing, cyanosis, or edema. No obvious deformities. NEUROLOGICAL: Awake and alert. No obvious cranial nerve deficits. Motor grossly within normal limits. Five out of 5 muscle strength in the arms and legs. Normal speech. PSYCHIATRIC: Appropriate mood and affect; insight and judgment normal. Medications and IVs Current Medications Medications (Trade) Dose Ordered Sig/Salvatore Route Start Time Stop Time Status Last Admin Dextrose/Sodium Chloride 1,000 ml @ 100 mls/hr Q10H IV 06/21/17 05:15 06/22/17 11:33 (NS Flush) 2 ml UNSCH PRN IV FLUSH 06/21/17 05:30 (NS Flush) 2 ml BID IV FLUSH 06/21/17 09:00 06/21/17 22:06 (Tylenol) 650 mg Q4H PRN PO 06/21/17 05:30 (Zofran Inj) 4 mg Q6H PRN IVP 06/21/17 05:30 (Narcan Inj) 0.4 mg UNSCH PRN IV PUSH 06/21/17 05:30 (Evelyn-Colace) 1 tab BID PO 06/21/17 09:00 06/22/17 09:26 (Milk Of Magnesia Liq) 30 ml Q12H PRN PO 06/21/17 05:30 (Senokot) 17.2 mg Q12H PRN PO 06/21/17 05:30 (Dulcolax Supp) 10 mg DAILY PRN RECTAL 06/21/17 05:30 (Lactulose Liq) 30 ml DAILY PRN PO 06/21/17 05:30 (Depakote Er) 1,000 mg HS PO 06/21/17 21:00 06/21/17 22:07 Patient Own Medication PT OWN MED: FLUVOXAM... HS PO 06/21/17 21:00 Future Hold (Desyrel) 100 mg HS PO 06/21/17 21:00 06/21/17 22:07 (Aspirin Chew) 81 mg DAILY CHEW 06/21/17 12:15 06/22/17 09:26 (ZyrTEC) 10 mg DAILY PO 06/21/17 12:15 06/22/17 09:26 (Lopressor) 50 mg DAILY PO 06/21/17 12:15 06/22/17 09:26 (Protonix) 40 mg DAILY PO 06/21/17 12:15 06/22/17 09:27 (Morphine Inj) 4 mg Q3H PRN IV PUSH 06/21/17 11:45 06/22/17 12:22 A/P Assessment and Plan Ileus/ SBO The patient has a history of diverticulitis status post colostomy placement and reversal of colostomy. He presents with abdominal pain, distention and constipation. CT scan showed: Abnormal dilated loops of small bowel are identified without well-defined transition point however distal loops are decompressed and the findings can be seen with an ileus or developing small bowel obstruction. Colorectal surgery consult appreciated. KUB 06/22/17 normal. - Clear liquid diet per colorectal surgery. - pain control with IV morphine. Try to spare usage. - Antiemetics as needed. - Repeat KUB in the morning. Atrial fibrillation Seems to be paroxysmal, related to his surgery for diverticulitis. Rate controlled at this time. - Continue Lopressor. - Telemetry. Thrombocytopenia The patient's platelet count seems to have fluctuated in the past. No evidence of bleeding. - Follow CBC as needed. PPx: SCDs Discharge Planning Await colorectal surgery clearance Nixon Newell DO Jun 22, 2017 14:35
[2017-06-22] MEDS: DIVALPROEX SODIUM E.R. 500 MG TAB PO SCH (21:28)
[2017-06-22] MEDS: ACETAMINOPHEN 325 MG TAB PO PRN (21:29)
[2017-06-22] MEDS: traZODone HCL 100 MG TAB PO SCH (21:29)
[2017-06-23] VITALS (15 sets, daily range): BP systolic 106–145; BP diastolic 68–78; PULSE 62–85; RESP 18; TEMP 98.5–105; O2SAT 92–98
[2017-06-23] MEDS: ACETAMINOPHEN 325 MG TAB PO PRN ×3 (03:41→20:45)
--- NOTE | 2017-06-23 05:18 | RADRPT ---
EXAM DATE/TIME: 06/23/2017 04:19 [facility] COMPARISON: ABDOMEN FLAT & UPRIGHT, June 23, 2017, 4:21. ABDOMEN FLAT & UPRIGHT, June 22, 2017, 5:59. C HEST SINGLE AP, December 15, 2015, 23:19. INDICATIONS : Fever MEDICAL HISTORY : Diverticulitis. SURGICAL HISTORY : Appendectomy. Colostomy. Colon Resection ENCOUNTER: Initial ACUITY: 3 days PAIN SCORE: 7/10 LOCATION: Bilateral chest FINDINGS: A single view of the chest demonstrates the lungs to be symmetrically aerated without evidence of mas s, infiltrate or effusion. The heart is upper limits normal size for AP technique. Osseous structur es are intact. CONCLUSION: The lungs are clear. Terry Merino MD on June 23, 2017 at 5:15 Board Certified Radiologist. This report was verified electronically.
--- NOTE | 2017-06-23 05:32 | RADRPT ---
EXAM DATE/TIME: 06/23/2017 04:21 [facility] COMPARISON: ABDOMEN FLAT & UPRIGHT, June 22, 2017, 5:59. INDICATIONS : Evaluate for Ileus MEDICAL HISTORY : Diverticulitis. SURGICAL HISTORY : Appendectomy. Colostomy. Colon resection. ENCOUNTER: Subsequent ACUITY: 3 days PAIN SCORE: 7/10 LOCATION: Bilateral Abdomen FINDINGS: Supine and upright views of the abdomen were performed. No dilated loops of small or large bowel. T he contrast seen throughout the colon on prior examination is now in the rectosigmoid region. No nancy picious calcifications. The visualized lower lungs are clear. Mild curvature of the thoracolumbar s pine towards the right is probably positional. Osseous structures are grossly intact. CONCLUSION: No dilated loops of small or large bowel. Terry Merino MD on June 23, 2017 at 5:29 Board Certified Radiologist. This report was verified electronically.
[2017-06-23 07:17] LABS: BASOPHIL % 0.4 % (0.0-2.0); EOSINOPHIL # 0.1 TH/MM3 (0-0.4); EOSINOPHIL % 1.8 % (0.0-4.0); HEMATOCRIT 38.2 % (39.0-51.0); LYMPH % 12.5 % (9.0-44.0); LYMPHOCYTE # 0.5 TH/MM3 (1.0-4.8); MEAN CELL VOLUME 84.8 FL (80.0-100.0); MEAN CORPUSCULAR HEMOGLOBIN 29.6 PG (27.0-34.0); MEAN CORPUSCULAR HGB CONC 34.9 % (32.0-36.0); MONO % 10.1 % (0.0-8.0); NEUT % 75.2 % (16.0-70.0); PLATELET COUNT 99 TH/MM3 (150-450); RED CELL DISTRIBUTION WIDTH 13.7 % (11.6-17.2)
[2017-06-23 07:19] LABS: HEMO FLAGS AUTO DIFF
[2017-06-23 07:46] LABS: PLATELET ESTIMATE SMEAR LOW (NORMAL); PLATELET MORPHOLOGY NORMAL (NORMAL); SCAN/DIFF AUTO DIFF CONFIRMED
[2017-06-23] MEDS: SODIUM CHLORIDE 0.9% FLUSH 10 ML FLUSH IV FLUSH SCH ×2 (08:35→19:25)
[2017-06-23] MEDS: ASPIRIN 81 MG CHEW TAB CHEW SCH (08:35)
[2017-06-23] MEDS: PANTOPRAZOLE SOD 40 MG DELAYED RELEASE TAB PO SCH (08:36)
[2017-06-23] MEDS: METOPROLOL TARTRATE 50 MG TAB PO SCH (08:36)
[2017-06-23] MEDS: CETIRIZINE HCL 10 MG TAB PO SCH (08:36)
[2017-06-23] MEDS ORDERED: PNEUMOCOCCAL POLYVALENT INJ 25 MCG/0.5 ML SYR IM ONE (10:00)
[2017-06-23] MEDS ORDERED: INFLUENZA VIRUS VACCINE (QUADRIVALENT) 0.5 ML SYR IM ONE (10:00)
--- NOTE | 2017-06-23 11:04 | HHI.PR ---
Subjective Remarks The patient spiked a fever up to 105 last night. He said he felt very sweaty. Otherwise no symptoms. He says that he is tolerating his full liquid diet. He says he is having a lot of bowel movements now. Discussed with nursing at bedside. Objective Vitals Vital Signs Date Time Temp Pulse Resp B/P (MAP) Pulse Ox O2 Delivery O2 Flow Rate FiO2 06/23/17 07:22 99.1 72 18 121/68 (85) 94 06/23/17 07:00 67 06/23/17 06:00 98.7 06/23/17 05:30 100.0 06/23/17 04:45 22 06/23/17 04:04 85 06/23/17 03:27 105.0 79 18 145/74 (97) 92 06/23/17 00:03 68 06/22/17 23:00 101.4 82 18 118/69 (85) 92 06/22/17 21:40 20 06/22/17 20:21 104.0 87 18 129/68 (88) 96 06/22/17 19:05 80 06/22/17 12:17 97.9 20 112/62 (79) 97 Result Diagram: 06/23/17 0709 06/22/17 0318 Imaging Last Impressions Abdomen X-Ray 06/23/17 0600 Signed Impressions: Service Date/Time: Friday, June 23, 2017 04:21 - CONCLUSION: No dilated loops of small or large bowel. Terry Merino MD Chest X-Ray 06/23/17 0000 Signed Impressions: Service Date/Time: Friday, June 23, 2017 04:19 - CONCLUSION: The lungs are clear. Terry Merino MD Abdomen/Pelvis CT 06/20/17 0000 Signed Impressions: Service Date/Time: Wednesday, June 21, 2017 01:39 - CONCLUSION: Abnormal dilated loops of small bowel are identified without well-defined transition point however distal loops are decompressed and the findings can be seen with an ileus or developing small bowel obstruction. Dereje Amezcua MD Objective Remarks GENERAL: Resting comfortably. SKIN: Warm and dry. HEAD: Atraumatic. Normocephalic. EYES: Pupils equal and round. No scleral icterus. No injection or drainage. ENT: No nasal bleeding or discharge. Mucous membranes pink and moist. NECK: Trachea midline. No JVD. CARDIOVASCULAR: Regular rate and rhythm. No murmur appreciated. RESPIRATORY: No accessory muscle use. Clear to auscultation. Breath sounds equal bilaterally. GASTROINTESTINAL: Abdomen is soft. Nontender. No guarding or rebound. Normal bowel sounds. MUSCULOSKELETAL: Extremities without clubbing, cyanosis, or edema. No obvious deformities. NEUROLOGICAL: Awake and alert. No obvious cranial nerve deficits. Motor grossly within normal limits. Five out of 5 muscle strength in the arms and legs. Normal speech. PSYCHIATRIC: Appropriate mood and affect; insight and judgment normal. Medications and IVs Current Medications Medications (Trade) Dose Ordered Sig/Salvatore Route Start Time Stop Time Status Last Admin Dextrose/Sodium Chloride 1,000 ml @ 60 mls/hr [id number] IV 06/21/17 05:15 06/22/17 11:33 (NS Flush) 2 ml UNSCH PRN IV FLUSH 06/21/17 05:30 (NS Flush) 2 ml BID IV FLUSH 06/21/17 09:00 06/23/17 08:35 (Tylenol) 650 mg Q4H PRN PO 06/21/17 05:30 06/23/17 03:41 (Zofran Inj) 4 mg Q6H PRN IVP 06/21/17 05:30 (Narcan Inj) 0.4 mg UNSCH PRN IV PUSH 06/21/17 05:30 (Dulcolax Supp) 10 mg DAILY PRN RECTAL 06/21/17 05:30 (Depakote Er) 1,000 mg HS PO 06/21/17 21:00 06/22/17 21:28 Patient Own Medication PT OWN MED: FLUVOXAM... HS PO 06/21/17 21:00 Future Hold (Desyrel) 100 mg HS PO 06/21/17 21:00 06/22/17 21:29 (Aspirin Chew) 81 mg DAILY CHEW 06/21/17 12:15 06/23/17 08:35 (ZyrTEC) 10 mg DAILY PO 06/21/17 12:15 06/23/17 08:36 (Lopressor) 50 mg DAILY PO 06/21/17 12:15 06/23/17 08:36 (Protonix) 40 mg DAILY PO 06/21/17 12:06/23/17 08:36 (Morphine Inj) 4 mg Q3H PRN IV PUSH 06/21/17 11:45 06/22/17 21:30 A/P Assessment and Plan Ileus/ SBO The patient has a history of diverticulitis status post colostomy placement and reversal of colostomy. He presents with abdominal pain, distention and constipation. CT scan showed: Abnormal dilated loops of small bowel are identified without well-defined transition point however distal loops are decompressed and the findings can be seen with an ileus or developing small bowel obstruction. Colorectal surgery consult appreciated. KUB 06/23/17 normal. - full liquid diet per colorectal surgery. - pain control with IV morphine. Try to spare usage. - Antiemetics as needed. Fever The pt spiked a fever of up to 105. CXR unremarkable. Asymptomatic at this time. - check UA, blood cultures x2 and stool studies including C diff PCR. - start IV Cipro and PO Flagyl. Atrial fibrillation Seems to be paroxysmal, related to his surgery for diverticulitis. Rate controlled at this time. - Continue Lopressor. - Telemetry. Thrombocytopenia The patient's platelet count seems to have fluctuated in the past. No evidence of bleeding. - Follow CBC as needed. PPx: SCDs Discharge Planning Await colorectal surgery clearance, fever work-up Nixon Newell DO Jun 23, 2017 11:04
[2017-06-23 11:35] LABS: BLOOD, URINE NEG (NEG); GLUCOSE,URINE NEG (NEG); KETONE, URINE NEG (NEG); NITRITE,URINE NEG (NEG); PH, URINE 6.5 (5.0-8.5); SQUAMOUS EPITHELIAL CELL URINE <1 /hpf (0-5); URINE COLOR YELLOW (YELLW/STRAW)
[2017-06-23 11:49] LABS: COMMENT (UR) CULT NOT INDICATED; CULTURE IF INDICATED CULT NOT INDICATED
[2017-06-23] MEDS: CIPROFLOXACIN 400 MG PREMIX 200 ML IV SCH (13:12)
[2017-06-23] MEDS: metroNIDAZOLE 500 MG TAB PO SCH ×2 (13:26→20:46)
[2017-06-23 14:32] LABS: ALKALINE PHOSPHATASE 144 U/L (45-117); ALT (GPT) 330 U/L (12-78); ANION GAP 6 MEQ/L (5-15); AST (GOT) 156 U/L (15-37); BLOOD UREA NITROGEN 11 MG/DL (7-18); CHLORIDE 102 MEQ/L (98-107); GLOMERULAR FILTRATION RATE 99 ML/MIN (>89); POTASSIUM 3.8 MEQ/L (3.5-5.1); SODIUM (NA) 136 MEQ/L (136-145); TOTAL BILIRUBIN ADULT 1.8 MG/DL (0.2-1.0)
--- NOTE | 2017-06-23 16:51 | RADRPT ---
EXAM DATE/TIME: 06/23/2017 16:08 [facility] COMPARISON: CT ABDOMEN & PELVIS W CONTRAST, June 21, 2017, 1:39. INDICATIONS : Increased lab values. MEDICAL HISTORY : Diverticulitis. Bipolar disorder. Anxiety. SURGICAL HISTORY : Appendectomy. Colostomy reversal. ENCOUNTER: Initial ACUITY: 1 day PAIN SCORE: 0/10 LOCATION: Bilateral upper quadrant MEASUREMENTS: LIVER: 18.4 cm length COMMON DUCT: 9 mm RIGHT KIDNEY: 12.4 x 5.2 x 5.5 cm SPLEEN: 13.5 cm length FINDINGS: LIVER: The liver is diffusely hyperechoic. It is mildly enlarged measuring 18.4 cm in length. Portal vein is patent. There are no focal space-occupying lesions or evidence of biliary ductal rotation. COMMON DUCT: Mildly enlarged. No intraluminal mass or stone visualized. GALLBLADDER: Significant debris is identified in the gallbladder. There is mild wall thickening measuring 4.7 mm. PANCREAS: The visualized portions are within normal limits. RIGHT KIDNEY: No hydronephrosis, stone or mass. SPLEEN: Spleen is at the upper limits of normal size to mildly enlarged. CONCLUSION: 1. Hepatic steatosis. 2. Inspissated bile versus gravel within the gallbladder which is associate with mild gallbladder wal l thickening. 3. Mildly dilated common bile duct 4. Mild hepatosplenomegaly. Aurelio Kingsley MD on June 23, 2017 at 16:43 Board Certified Radiologist. This report was verified electronically.
[2017-06-23] MEDS: MORPHINE SULFATE 4 MG/ML INJ IV PUSH PRN (19:24)
[2017-06-23] MEDS: DIVALPROEX SODIUM E.R. 500 MG TAB PO SCH (20:45)
[2017-06-23] MEDS: traZODone HCL 100 MG TAB PO SCH (20:46)
[2017-06-23] MEDS: DEXT 5%-NACL 0.45% 1000 ML INJ 1,000 ML IV SCH (20:58)
--- NOTE | 2017-06-23 23:57 | HHI.PR ---
Subjective Remarks C/R Surg Temp 105, now 99, VSS PO linwood +loose stool no abd pain Objective - Vital Signs Date Time Temp Pulse Resp B/P (MAP) Pulse Ox O2 Delivery O2 Flow Rate FiO2 06/23/17 23:28 98.5 71 18 106/70 (82) 94 06/20/17 22:41 Room Air Result Diagram: 06/23/17 0709 06/23/17 1320 Objective Remarks PE alert Abd - soft, min tympany, non-tender A/P Assessment and Plan Imp: fever - on ab's check stool OOB admit cont IVF Noah Martin MD Jun 23, 2017 23:57
[2017-06-24] VITALS (11 sets, daily range): BP systolic 111–138; BP diastolic 72–86; PULSE 52–87; RESP 16–20; TEMP 98.5–102.5; O2SAT 95–98
[2017-06-24] MEDS: CIPROFLOXACIN 400 MG PREMIX 200 ML IV SCH ×2 (00:51→13:24)
[2017-06-24] MEDS: ACETAMINOPHEN 325 MG TAB PO PRN ×2 (03:21→08:05)
[2017-06-24] MEDS: MORPHINE SULFATE 4 MG/ML INJ IV PUSH PRN ×3 (03:22→21:22)
[2017-06-24 05:35] LABS: AUTOMATED NEUTROPHIL # 2.1 TH/MM3 (1.8-7.7); BASOPHIL % 1.1 % (0.0-2.0); EOSINOPHIL # 0.1 TH/MM3 (0-0.4); EOSINOPHIL % 2.7 % (0.0-4.0); HEMATOCRIT 37.7 % (39.0-51.0); LYMPH % 16.5 % (9.0-44.0); LYMPHOCYTE # 0.5 TH/MM3 (1.0-4.8); MEAN CELL VOLUME 85.2 FL (80.0-100.0); MEAN CORPUSCULAR HEMOGLOBIN 29.4 PG (27.0-34.0); MEAN CORPUSCULAR HGB CONC 34.5 % (32.0-36.0); MONO % 11.2 % (0.0-8.0); NEUT % 68.5 % (16.0-70.0); PLATELET COUNT 90 TH/MM3 (150-450); RED BLOOD COUNT 4.43 MIL/MM3 (4.50-5.90); RED CELL DISTRIBUTION WIDTH 13.9 % (11.6-17.2)
[2017-06-24 05:48] LABS: HEMO FLAGS AUTO DIFF
[2017-06-24 08:02] LABS: SCAN/DIFF AUTO DIFF CONFIRMED
[2017-06-24] MEDS: METOPROLOL TARTRATE 50 MG TAB PO SCH (08:03)
[2017-06-24] MEDS: CETIRIZINE HCL 10 MG TAB PO SCH (08:03)
[2017-06-24] MEDS: PANTOPRAZOLE SOD 40 MG DELAYED RELEASE TAB PO SCH (08:03)
[2017-06-24] MEDS: metroNIDAZOLE 500 MG TAB PO SCH ×2 (08:04→13:23)
[2017-06-24] MEDS: ASPIRIN 81 MG CHEW TAB CHEW SCH (08:04)
[2017-06-24] MEDS: SODIUM CHLORIDE 0.9% FLUSH 10 ML FLUSH IV FLUSH SCH ×2 (08:05→21:00)
--- NOTE | 2017-06-24 13:37 | HHI.PR ---
Subjective Remarks This is a pleasant 61 y/o male with Diverticulitis status post Colostomy and reversal Colostomy, who came to ER with Abdominal pain and constipation, recent abdominal infection treated with antibiotics, yesterday had Fever 105F, having bowel movements. stable in his bedroom, his laboratory demonstrated acute worsening of liver enzymes, status post HIDA scan performed by family development specialist found non visualization of the gallbladder. no complaint by patient giving sample for C Diff recommended to hospitalize patient. Objective Vital Signs Date Time Temp Pulse Resp B/P (MAP) Pulse Ox O2 Delivery O2 Flow Rate FiO2 06/24/17 13:13 98.7 52 20 130/86 (101) 98 06/24/17 07:58 98.9 57 20 120/72 (88) 95 06/24/17 06:52 54 06/24/17 04:22 73 06/24/17 03:17 102.5 87 18 138/78 (98) 98 06/24/17 00:29 62 06/23/17 23:28 98.5 71 18 106/70 (82) 94 06/23/17 20:29 102.5 69 18 122/70 (87) 98 06/23/17 20:04 77 06/23/17 16:42 99.4 68 18 130/78 (95) 94 06/23/17 15:56 62 Result Diagram: 06/24/17 0436 06/23/17 1320 Imaging Last Impressions Abdomen X-Ray 06/23/17 0600 Signed Impressions: Service Date/Time: Friday, June 23, 2017 04:21 - CONCLUSION: No dilated loops of small or large bowel. Terry Merino MD Liver Ultrasound 06/23/17 0000 Signed Impressions: Service Date/Time: Friday, June 23, 2017 16:08 - CONCLUSION: 1. Hepatic steatosis. 2. Inspissated bile versus gravel within the gallbladder which is associate with mild gallbladder wall thickening. 3. Mildly dilated common bile duct 4. Mild hepatosplenomegaly. Aurelio Kingsley MD Chest X-Ray 06/23/17 0000 Signed Impressions: Service Date/Time: Friday, June 23, 2017 04:19 - CONCLUSION: The lungs are clear. Terry Merino MD Abdomen/Pelvis CT 06/20/17 0000 Signed Impressions: Service Date/Time: Wednesday, June 21, 2017 01:39 - CONCLUSION: Abnormal dilated loops of small bowel are identified without well-defined transition point however distal loops are decompressed and the findings can be seen with an ileus or developing small bowel obstruction. Dereje Amezcua MD Procedures HIDA scan. Other Results Laboratory Tests Test 06/20/17 22:14 06/23/17 07:09 06/23/17 11:10 06/23/17 13:20 Troponin I LESS THAN 0.02 NG/ML Platelet Estimate LOW Platelet Morphology Comment NORMAL Red Cell Morphology Comment NORMAL Lactic Acid Level 1.0 mmol/L Urine Color YELLOW Urine Turbidity CLEAR Urine pH 6.5 Urine Specific [place] 1.002 Urine Protein NEG mg/dL Urine Glucose (UA) NEG mg/dL Urine Ketones NEG mg/dL Urine Occult Blood NEG Urine Nitrite NEG Urine Bilirubin NEG Urine Urobilinogen LESS THAN 2.0 MG/DL Urine Leukocyte Esterase NEG Urine WBC 1 /hpf Urine Squamous Epithelial Cells <1 /hpf Microscopic Urinalysis Comment CULT NOT INDICATED Blood Urea Nitrogen 11 MG/DL Creatinine 0.79 MG/DL Random Glucose 86 MG/DL Total Protein 6.4 GM/DL Albumin 2.9 GM/DL Calcium Level 8.3 MG/DL Alkaline Phosphatase 144 U/L Aspartate Amino Transf (AST/SGOT) 156 U/L Alanine Aminotransferase (ALT/SGPT) 330 U/L Total Bilirubin 1.8 MG/DL Sodium Level 136 MEQ/L Potassium Level 3.8 MEQ/L Chloride Level 102 MEQ/L Carbon Dioxide Level 28.0 MEQ/L Anion Gap 6 MEQ/L Estimat Glomerular Filtration Rate 99 ML/MIN Lipase 127 U/L Test 06/23/17 16:42 06/24/17 04:36 Hepatitis A IgM Antibody NEGATIVE Hepatitis B Surface Antigen NEGATIVE Hepatitis B Core IgM Antibody NEGATIVE Hepatitis C Antibody NEGATIVE White Blood Count 3.0 TH/MM3 Red Blood Count 4.43 MIL/MM3 Hemoglobin 13.0 GM/DL Hematocrit 37.7 % Mean Corpuscular Volume 85.2 FL Mean Corpuscular Hemoglobin 29.4 PG Mean Corpuscular Hemoglobin Concent 34.5 % Red Cell Distribution Width 13.9 % Platelet Count 90 TH/MM3 Mean Platelet Volume 7.7 FL Neutrophils (%) (Auto) 68.5 % Lymphocytes (%) (Auto) 16.5 % Monocytes (%) (Auto) 11.2 % Eosinophils (%) (Auto) 2.7 % Basophils (%) (Auto) 1.1 % Neutrophils # (Auto) 2.1 TH/MM3 Lymphocytes # (Auto) 0.5 TH/MM3 Monocytes # (Auto) 0.3 TH/MM3 Eosinophils # (Auto) 0.1 TH/MM3 Basophils # (Auto) 0.0 TH/MM3 CBC Comment AUTO DIFF Differential Comment AUTO DIFF CONFIRMED Objective Remarks GENERAL: Resting comfortably. SKIN: Warm and dry. HEAD: Atraumatic. Normocephalic. EYES: Pupils equal and round. No scleral icterus. No injection or drainage. ENT: No nasal bleeding or discharge. Mucous membranes pink and moist. NECK: Trachea midline. No JVD. CARDIOVASCULAR: Regular rate and rhythm. No murmur appreciated. RESPIRATORY: No accessory muscle use. Clear to auscultation. Breath sounds equal bilaterally. GASTROINTESTINAL: Abdomen is soft. Nontender. No guarding or rebound. Normal bowel sounds. MUSCULOSKELETAL: Extremities without clubbing, cyanosis, or edema. No obvious deformities. NEUROLOGICAL: Awake and alert. No obvious cranial nerve deficits. Motor grossly within normal limits. Five out of 5 muscle strength in the arms and legs. Normal speech. PSYCHIATRIC: Appropriate mood and affect; insight and judgment normal. Medications and IVs Current Medications Medications (Trade) Dose Ordered Sig/Salvatore Route Start Time Stop Time Status Last Admin Dextrose/Sodium Chloride 1,000 ml @ 60 mls/hr [id number] IV 06/21/17 05:15 06/23/17 20:58 (NS Flush) 2 ml UNSCH PRN IV FLUSH 06/21/17 05:30 (NS Flush) 2 ml BID IV FLUSH 06/21/17 09:00 06/23/17 19:25 (Tylenol) 650 mg Q4H PRN PO 06/21/17 05:30 06/24/17 08:05 (Zofran Inj) 4 mg Q6H PRN IVP 06/21/17 05:30 (Narcan Inj) 0.4 mg UNSCH PRN IV PUSH 06/21/17 05:30 (Dulcolax Supp) 10 mg DAILY PRN RECTAL 06/21/17 05:30 (Depakote Er) 1,000 mg HS PO 06/21/17 21:00 06/23/17 20:45 Patient Own Medication PT OWN MED: FLUVOXAM... HS PO 06/21/17 21:00 Future Hold (Desyrel) 100 mg HS PO 06/21/17 21:00 06/23/17 20:46 (Aspirin Chew) 81 mg DAILY CHEW 06/21/17 12:15 06/24/17 08:04 (ZyrTEC) 10 mg DAILY PO 06/21/17 12:15 06/24/17 08:03 (Lopressor) 50 mg DAILY PO 06/21/17 12:15 06/24/17 08:03 (Protonix) 40 mg DAILY PO 06/21/17 12:15 06/24/17 08:03 (Morphine Inj) 2 mg Q6H PRN IV PUSH 06/23/17 11:00 06/24/17 03:22 Ciprofloxacin/ Dextrose 200 ml @ 200 mls/hr Q12H IV 06/23/17 13:00 06/24/17 13:24 (Flagyl) 500 mg Q8HR PO 06/23/17 14:00 06/24/17 13:23 A/P Assessment and Plan Ileus/ SBO The patient has a history of diverticulitis status post colostomy placement and reversal of colostomy. He presents with abdominal pain, distention and constipation. CT scan showed: Abnormal dilated loops of small bowel are identified without well-defined transition point however distal loops are decompressed and the findings can be seen with an ileus or developing small bowel obstruction. Colorectal surgery consult appreciated. KUB 06/23/17 normal. - full liquid diet per colorectal surgery. - at this time having bowel movements. asked for HIDA scan and found non visualization of the Gallbladder. Fever continue spikes of fever, worsening his Liver function, and HIDA scan non visualized Gallbladder, consistent with Cholecystitis may need further Surgical intervention, continue Ciprofloxacin and Flagyl IV and following cultures. Atrial fibrillation Seems to be paroxysmal, Rate controlled at this time. continue beta blockers and follow. Thrombocytopenia The patient's platelet count seems to have fluctuated in the past. No evidence of bleeding. - Follow CBC as needed. PPx: SCDs probable surgical intervention to follow awaiting final by Colorectal family development specialist Discharge Planning Once cleared by his Primary Colorectal family development specialist. Garrick Parks MD Jun 24, 2017 13:37
--- NOTE | 2017-06-24 14:02 | RADRPT ---
EXAM DATE/TIME: 06/24/2017 10:19 [facility] COMPARISON: US ABDOMEN - LIVER, June 23, 2017, 16:08. INDICATIONS : Abdominal pain for one day. DOSE: 4.1 mCi Tc99m Mebrofenin IV MEDICAL HISTORY : Atrial fibrillation. SURGICAL HISTORY : Appendectomy. Colostomy removal. ENCOUNTER: Initial ACUITY: 1 day PAIN SCALE: 4/10 LOCATION: Right upper quadrant TECHNIQUE: Following the intravenous administration of radiotracer, dynamic sequential images were performed wit h continuous acquisition. FINDINGS: HEPATIC KINETICS: There is prompt uptake of radiotracer in the liver. No focal defects are seen. There is normal rate of washout from the hepatic parenchyma. BILIARY CLEARANCE: Activity is first seen in the extrahepatic biliary system at 15 minutes. There is normal excretion i nto the small bowel. GALLBLADDER: Gallbladder is nonvisualized. BILIARY ENTRIC REFLUX: None observed. CONCLUSION: 1. No activity demonstrated in the gallbladder at 60 minutes. Ben Casey MD on June 24, 2017 at 13:53 Board Certified Radiologist. This report was verified electronically.
--- NOTE | 2017-06-24 16:57 | PD.CONS ---
cc: Grover Soto MD [facility] Service General Surgery Consult Requested By Dr. Martin Reason for Consult Possible acute cholecystitis Primary Care Physician Noah Martin MD History of Present Illness This is a 61-year-old male with a past medical history of diverticulitis status post colectomy with reversal and atrial fibrillation. The patient developed abdominal pain on Friday night with flu-like symptoms including high fever, nausea, vomiting and body aches. He reports that he has been around several people who have had the flu recently. The patient was at home and vomited 2 straight days and then came to the Emergency Department. On arrival to the Emergency Department, a CT abdomen and pelvis was obtained which showed dilated loops of small bowel without transition point. An ultrasound of the liver was also obtained which showed a mildly dilated common bile duct and a question of some gallbladder wall thickening. The patient has a normal white blood cell count but mildly elevated liver enzymes. The patient's Colorectal Surgery, Dr. Martin, has been following the patient. A HIDA scan was obtained which showed no activity in the gallbladder after 60 minutes. A General Surgery consultation has been requested for evaluation of acute cholecystitis. Review of Systems Constitutional: COMPLAINS OF: Fatigue, Fever, Chills, DENIES: Change in appetite Endocrine: DENIES: Polydipsia, Polyuria, Polyphagia Eyes: DENIES: Diplopia Ears, nose, mouth, throat: DENIES: Hearing loss Respiratory: DENIES: Cough Cardiovascular: DENIES: Chest pain Gastrointestinal: COMPLAINS OF: Constipation, Nausea, Vomiting, DENIES: Abdominal pain Genitourinary: DENIES: Urinary frequency Musculoskeletal: COMPLAINS OF: Muscle aches, DENIES: Joint pain Integumentary: DENIES: Abnormal pigmentation Hematologic/lymphatic: DENIES: Bruising Immunologic/allergic: DENIES: Eczema Neurologic: DENIES: Headache, Localized weakness Psychiatric: DENIES: Mood changes, Depression Past Family Social History Past Medical History Diverticulitis Depression Atrial fibrillation Past Surgical History Status post colectomy and reversal Open appendectomy in second grade Reported Medications Cetirizine Metoprolol Aspirin Ibuprofen [place] Depakote Trazodone Omeprazole Folic Acid Thiamine Multivitamin Fluvoxamine Allergies: Coded Allergies: No Known Allergies (Verified Allergy, Unknown, 06/21/17) Active Ordered Medications Current Medications Medications (Trade) Dose Ordered Sig/Salvatore Route Start Time Stop Time Status Last Admin Dextrose/Sodium Chloride 1,000 ml @ 60 mls/hr [id number] IV 06/21/17 05:15 06/23/17 20:58 (NS Flush) 2 ml UNSCH PRN IV FLUSH 06/21/17 05:30 (NS Flush) 2 ml BID IV FLUSH 06/21/17 09:00 06/23/17 19:25 (Tylenol) 650 mg Q4H PRN PO 06/21/17 05:30 06/24/17 08:05 (Zofran Inj) 4 mg Q6H PRN IVP 06/21/17 05:30 (Narcan Inj) 0.4 mg UNSCH PRN IV PUSH 06/21/17 05:30 (Dulcolax Supp) 10 mg DAILY PRN RECTAL 06/21/17 05:30 (Depakote Er) 1,000 mg HS PO 06/21/17 21:00 06/23/17 20:45 Patient Own Medication PT OWN MED: FLUVOXAM... HS PO 06/21/17 21:00 Future Hold (Desyrel) 100 mg HS PO 06/21/17 21:00 06/23/17 20:46 (Aspirin Chew) 81 mg DAILY CHEW 06/21/17 12:15 06/24/17 08:04 (ZyrTEC) 10 mg DAILY PO 06/21/17 12:15 06/24/17 08:03 (Lopressor) 50 mg DAILY PO 06/21/17 12:15 06/24/17 08:03 (Protonix) 40 mg DAILY PO 06/21/17 12:15 06/24/17 08:03 (Morphine Inj) 2 mg Q6H PRN IV PUSH 06/23/17 11:00 06/24/17 14:28 Ciprofloxacin/ Dextrose 200 ml @ 200 mls/hr Q12H IV 06/23/17 13:00 06/24/17 13:24 (Flagyl) 500 mg Q8HR PO 06/23/17 14:00 06/24/17 13:23 Family History Noncontributory Social History Denies tobacco use Denies EtOH use Denies illicit drug use Lives at home by himself. Physical Exam Vital Signs Vital Signs Date Time Temp Pulse Resp B/P (MAP) Pulse Ox O2 Delivery O2 Flow Rate FiO2 06/24/17 13:42 60 06/24/17 13:13 98.7 52 20 130/86 (101) 98 06/24/17 07:58 98.9 57 20 120/72 (88) 95 06/24/17 06:52 54 06/24/17 04:22 73 06/24/17 03:17 102.5 87 18 138/78 (98) 98 06/24/17 00:29 62 06/23/17 23:28 98.5 71 18 106/70 (82) 94 06/23/17 20:29 102.5 69 18 122/70 (87) 98 06/23/17 20:04 77 06/23/17 16:42 99.4 68 18 130/78 (95) 94 Physical Exam GENERAL: Pleasant 61 year old male resting in bed in no acute distress. SKIN: Warm and dry. HEAD: Atraumatic. Normocephalic. EYES: Pupils equal and round. No scleral icterus. No injection or drainage. ENT: No nasal bleeding or discharge. Mucous membranes pink and moist. NECK: Trachea midline. CARDIOVASCULAR: Regular rate and rhythm. RESPIRATORY: No accessory muscle use. Clear to auscultation. Breath sounds equal bilaterally. GASTROINTESTINAL: Abdomen soft, non-tender, nondistended. No pain with deep palpation in the RUQ. Well healed large transverse incision; prior colostomy site well healed. MUSCULOSKELETAL: Extremities without clubbing, cyanosis, or edema. No obvious deformities. NEUROLOGICAL: Awake and alert. No obvious cranial nerve deficits. Motor grossly within normal limits. Five out of 5 muscle strength in the arms and legs. Normal speech. PSYCHIATRIC: Appropriate mood and affect; insight and judgment normal. Laboratory Laboratory Tests Test 06/23/17 16:42 06/24/17 04:36 Hepatitis A IgM Antibody NEGATIVE Hepatitis B Surface Antigen NEGATIVE Hepatitis B Core IgM Antibody NEGATIVE Hepatitis C Antibody NEGATIVE White Blood Count 3.0 Red Blood Count 4.43 Hemoglobin 13.0 Hematocrit 37.7 Mean Corpuscular Volume 85.2 Mean Corpuscular Hemoglobin 29.4 Mean Corpuscular Hemoglobin Concent 34.5 Red Cell Distribution Width 13.9 Platelet Count 90 Mean Platelet Volume 7.7 Neutrophils (%) (Auto) 68.5 Lymphocytes (%) (Auto) 16.5 Monocytes (%) (Auto) 11.2 Eosinophils (%) (Auto) 2.7 Basophils (%) (Auto) 1.1 Neutrophils # (Auto) 2.1 Lymphocytes # (Auto) 0.5 Monocytes # (Auto) 0.3 Eosinophils # (Auto) 0.1 Basophils # (Auto) 0.0 CBC Comment AUTO DIFF Differential Comment AUTO DIFF CONFIRMED Date/Time Source Procedure Growth Status 06/23/17 13:30 Blood Peripheral Aerobic Blood Culture - Preliminary NO GROWTH IN 1 DAY Resulted 06/23/17 13:30 Blood Peripheral Anaerobic Blood Culture - Preliminary NO GROWTH IN 1 DAY Resulted Result Diagram: 06/24/17 0436 06/23/17 1320 Imaging Last 48 hours Impressions Hepatobiliary Scan Nuclear Medicine 06/24/17 0000 Signed Impressions: Service Date/Time: Saturday, June 24, 2017 10:19 - CONCLUSION: 1. No activity demonstrated in the gallbladder at 60 minutes. Ben Casey MD Abdomen X-Ray 06/23/17 0600 Signed Impressions: Service Date/Time: Friday, June 23, 2017 04:21 - CONCLUSION: No dilated loops of small or large bowel. Terry Merino MD Liver Ultrasound 06/23/17 0000 Signed Impressions: Service Date/Time: Friday, June 23, 2017 16:08 - CONCLUSION: 1. Hepatic steatosis. 2. Inspissated bile versus gravel within the gallbladder which is associate with mild gallbladder wall thickening. 3. Mildly dilated common bile duct 4. Mild hepatosplenomegaly. Aurelio Kingsley MD Chest X-Ray 06/23/17 0000 Signed Impressions: Service Date/Time: Friday, June 23, 2017 04:19 - CONCLUSION: The lungs are clear. Terry Merino MD Assessment and Plan Assessment and Plan 61 year old male with abdominal pain (now resolved), nausea, vomiting, fevers and body aches -Clear liquids; NPO after MN -Recommend repeating lab work in the AM -Will follow along with laboratory work and abdominal exam in the morning -Thank you for this consult Discussed Condition With Kristina Parish Jun 24, 2017 16:57
[2017-06-24] MEDS: DEXT 5%-NACL 0.45% 1000 ML INJ 1,000 ML IV SCH (21:19)
[2017-06-24] MEDS: metroNIDAZOLE 500 MG INJ 100 ML IV SCH (21:20)
[2017-06-24] MEDS: DIVALPROEX SODIUM E.R. 500 MG TAB PO SCH (21:21)
[2017-06-24] MEDS: traZODone HCL 100 MG TAB PO SCH (21:21)
[2017-06-24 21:32] LABS: C. DIFF EPI 027 PRESUMPTIVE NEGATIVE (NEGATIVE)
--- NOTE | 2017-06-24 22:20 | HHI.PR ---
Subjective Remarks C/R Surg Temp 102, now 99, VSS PO linwood +loose stool no abd pain,passing flatus Objective - Vital Signs Date Time Temp Pulse Resp B/P (MAP) Pulse Ox O2 Delivery O2 Flow Rate FiO2 06/24/17 19:26 98.5 67 16 111/77 (88) 96 06/20/17 22:41 Room Air Result Diagram: 06/24/17 0436 06/23/17 1320 Objective Remarks PE alert Abd - soft, min tympany, non-tender, no mass A/P Assessment and Plan Imp: fever - on ab's OOB admit cont IVF Hida - no visualization GB - GS consult Noah Martin MD Jun 24, 2017 22:20
[2017-06-25] VITALS (7 sets, daily range): BP systolic 129–141; BP diastolic 79–82; PULSE 50–60; RESP 16–18; TEMP 98.1–98.7; O2SAT 95–98
[2017-06-25] MEDS: CIPROFLOXACIN 400 MG PREMIX 200 ML IV SCH ×2 (00:38→13:00)
[2017-06-25] MEDS: MORPHINE SULFATE 4 MG/ML INJ IV PUSH PRN (03:30)
[2017-06-25] MEDS: metroNIDAZOLE 500 MG INJ 100 ML IV SCH ×2 (05:44→14:05)
[2017-06-25 06:47] LABS: AUTOMATED NEUTROPHIL # 1.9 TH/MM3 (1.8-7.7); EOSINOPHIL # 0.2 TH/MM3 (0-0.4); EOSINOPHIL % 6.3 % (0.0-4.0); HEMATOCRIT 39.4 % (39.0-51.0); LYMPH % 25.2 % (9.0-44.0); LYMPHOCYTE # 0.9 TH/MM3 (1.0-4.8); MEAN CELL VOLUME 85.3 FL (80.0-100.0); MEAN CORPUSCULAR HEMOGLOBIN 29.2 PG (27.0-34.0); MEAN CORPUSCULAR HGB CONC 34.2 % (32.0-36.0); MONO % 14.8 % (0.0-8.0); NEUT % 52.7 % (16.0-70.0); PLATELET COUNT 98 TH/MM3 (150-450); RED BLOOD COUNT 4.62 MIL/MM3 (4.50-5.90); RED CELL DISTRIBUTION WIDTH 14.1 % (11.6-17.2); WHITE BLOOD COUNT 3.7 TH/MM3 (4.0-11.0)
[2017-06-25 06:57] LABS: HEMO FLAGS AUTO DIFF
[2017-06-25 07:05] LABS: ANION GAP 5 MEQ/L (5-15); AST (GOT) 42 U/L (15-37); BICARBONATE 29.7 MEQ/L (21.0-32.0); BLOOD UREA NITROGEN 10 MG/DL (7-18); CHLORIDE 104 MEQ/L (98-107); GLOMERULAR FILTRATION RATE 112 ML/MIN (>89); POTASSIUM 3.7 MEQ/L (3.5-5.1); SODIUM (NA) 139 MEQ/L (136-145)
[2017-06-25 07:09] LABS: ALKALINE PHOSPHATASE 118 U/L (45-117); ALT (GPT) 181 U/L (12-78); TOTAL BILIRUBIN ADULT 0.7 MG/DL (0.2-1.0)
[2017-06-25 08:47] LABS: BANDS 13 % (0-6); BASOPHILS 1 % (0-2); EOSINOPHILS 2 % (0-4); NEUTROPHIL # MANUAL DIFF 2.6 TH/MM3 (1.8-7.7); PLATELET ESTIMATE SMEAR LOW (NORMAL); PLATELET MORPHOLOGY NORMAL (NORMAL); POLYS (SEG NEUTROPHILS) 56 % (16-70); SCAN/DIFF FINAL DIFF MANUAL; WBC DIFF SAMPLE 100
[2017-06-25] MEDS: SODIUM CHLORIDE 0.9% FLUSH 10 ML FLUSH IV FLUSH SCH (08:50)
[2017-06-25] MEDS: ASPIRIN 81 MG CHEW TAB CHEW SCH (08:50)
[2017-06-25] MEDS: CETIRIZINE HCL 10 MG TAB PO SCH (08:51)
[2017-06-25] MEDS: PANTOPRAZOLE SOD 40 MG DELAYED RELEASE TAB PO SCH (08:51)
[2017-06-25] MEDS: METOPROLOL TARTRATE 50 MG TAB PO SCH (08:51)
[2017-06-25] MEDS: DEXT 5%-NACL 0.45% 1000 ML INJ 1,000 ML IV SCH (09:09)
--- NOTE | 2017-06-25 13:57 | HHI.PR ---
Subjective Remarks Cancelled Objective Vital Signs Date Time Temp Pulse Resp B/P (MAP) Pulse Ox O2 Delivery O2 Flow Rate FiO2 06/25/17 11:39 98.4 51 18 136/81 (99) 98 06/25/17 08:18 98.1 53 16 129/82 (98) 95 06/25/17 08:05 57 06/25/17 04:41 98.7 56 18 141/81 (101) 98 06/25/17 01:21 98.5 60 18 139/79 (99) 97 06/25/17 00:10 57 06/24/17 20:10 63 06/24/17 19:26 98.5 67 16 111/77 (88) 96 06/24/17 17:12 98.5 63 20 127/79 (95) 95 06/24/17 16:03 67 Result Diagram: 06/25/17 0416 06/25/17 0416 Garrick Parks MD Jun 25, 2017 13:56
[2017-06-25] MEDS ORDERED: NORC5TAB PO (14:15)
[2017-06-25] MEDS ORDERED: METR-1 PO (14:15)
[2017-06-25] MEDS ORDERED: CIPR-9 PO (14:15)
--- NOTE | 2017-06-25 14:25 | HHI.PR ---
Subjective Remarks This is a pleasant 61 y/o male with Diverticulitis status post Colostomy and reversal Colostomy, who came to ER with Abdominal pain and constipation, recent abdominal infection treated with antibiotics, yesterday had Fever 105F, having bowel movements. stable in his bedroom, his laboratory demonstrated acute worsening of liver enzymes, status post HIDA scan performed by electronic data interchange specialist found non visualization of the gallbladder. no complaint by patient giving sample for C Diff recommended to hospitalize patient. 06/25: Seen in his office in the presence of nurse Manny, patient was already seen by General electronic data interchange specialist recommended Laparoscopic evaluation for probable Cholecystectomy if indicated, the patient refused this procedure due to that his liver enzymes are trending down with medical management, he wants to go home and follow up with his primary physicians at [facility], I agree will continue antibiotics by mouth, follow with PCP in two to three days, no nausea, vomit or diarrhea. pain improved. Objective Vital Signs Date Time Temp Pulse Resp B/P (MAP) Pulse Ox O2 Delivery O2 Flow Rate FiO2 06/25/17 11:39 98.4 51 18 136/81 (99) 98 06/25/17 08:18 98.1 53 16 129/82 (98) 95 06/25/17 08:05 57 06/25/17 04:41 98.7 56 18 141/81 (101) 98 06/25/17 01:21 98.5 60 18 139/79 (99) 97 06/25/17 00:10 57 06/24/17 20:10 63 06/24/17 19:26 98.5 67 16 111/77 (88) 96 06/24/17 17:12 98.5 63 20 127/79 (95) 95 06/24/17 16:03 67 Result Diagram: 06/25/17 0416 06/25/17 0416 Imaging Last Impressions Hepatobiliary Scan Nuclear Medicine 06/24/17 0000 Signed Impressions: Service Date/Time: Saturday, June 24, 2017 10:19 - CONCLUSION: 1. No activity demonstrated in the gallbladder at 60 minutes. Ben Casey MD Abdomen X-Ray 06/23/17 0600 Signed Impressions: Service Date/Time: Friday, June 23, 2017 04:21 - CONCLUSION: No dilated loops of small or large bowel. Terry Merino MD Liver Ultrasound 06/23/17 0000 Signed Impressions: Service Date/Time: Friday, June 23, 2017 16:08 - CONCLUSION: 1. Hepatic steatosis. 2. Inspissated bile versus gravel within the gallbladder which is associate with mild gallbladder wall thickening. 3. Mildly dilated common bile duct 4. Mild hepatosplenomegaly. Aurelio Kingsley MD Chest X-Ray 06/23/17 0000 Signed Impressions: Service Date/Time: Friday, June 23, 2017 04:19 - CONCLUSION: The lungs are clear. Terry Merino MD Abdomen/Pelvis CT 06/20/17 0000 Signed Impressions: Service Date/Time: Wednesday, June 21, 2017 01:39 - CONCLUSION: Abnormal dilated loops of small bowel are identified without well-defined transition point however distal loops are decompressed and the findings can be seen with an ileus or developing small bowel obstruction. Dereje Amezcua MD Procedures HIDA scan. Other Results Laboratory Tests Test 06/20/17 22:14 06/23/17 07:09 06/23/17 11:10 06/23/17 13:20 Troponin I LESS THAN 0.02 NG/ML Red Cell Morphology Comment NORMAL Lactic Acid Level 1.0 mmol/L Urine Color YELLOW Urine Turbidity CLEAR Urine pH 6.5 Urine Specific [place] 1.002 Urine Protein NEG mg/dL Urine Glucose (UA) NEG mg/dL Urine Ketones NEG mg/dL Urine Occult Blood NEG Urine Nitrite NEG Urine Bilirubin NEG Urine Urobilinogen LESS THAN 2.0 MG/DL Urine Leukocyte Esterase NEG Urine WBC 1 /hpf Urine Squamous Epithelial Cells <1 /hpf Microscopic Urinalysis Comment CULT NOT INDICATED Lipase 127 U/L Test 06/23/17 16:42 06/24/17 14:20 06/25/17 04:16 Hepatitis A IgM Antibody NEGATIVE Hepatitis B Surface Antigen NEGATIVE Hepatitis B Core IgM Antibody NEGATIVE Hepatitis C Antibody NEGATIVE Stool C. difficile Toxin (PCR) NEGATIVE Stl C. difficile Toxin Epiderm 027 PRESUMPTIVE NEGATIVE White Blood Count 3.7 TH/MM3 Red Blood Count 4.62 MIL/MM3 Hemoglobin 13.5 GM/DL Hematocrit 39.4 % Mean Corpuscular Volume 85.3 FL Mean Corpuscular Hemoglobin 29.2 PG Mean Corpuscular Hemoglobin Concent 34.2 % Red Cell Distribution Width 14.1 % Platelet Count 98 TH/MM3 Mean Platelet Volume 8.5 FL Neutrophils (%) (Auto) 52.7 % Lymphocytes (%) (Auto) 25.2 % Monocytes (%) (Auto) 14.8 % Eosinophils (%) (Auto) 6.3 % Basophils (%) (Auto) 1.0 % Neutrophils # (Auto) 1.9 TH/MM3 Lymphocytes # (Auto) 0.9 TH/MM3 Monocytes # (Auto) 0.5 TH/MM3 Eosinophils # (Auto) 0.2 TH/MM3 Basophils # (Auto) 0.0 TH/MM3 CBC Comment AUTO DIFF Differential Total Cells Counted 100 Neutrophils % (Manual) 56 % Band Neutrophils % 13 % Lymphocytes % 16 % Monocytes % 12 % Eosinophils % 2 % Basophils % 1 % Neutrophils # (Manual) 2.6 TH/MM3 Differential Comment FINAL DIFF MANUAL Platelet Estimate LOW Platelet Morphology Comment NORMAL Blood Urea Nitrogen 10 MG/DL Creatinine 0.71 MG/DL Random Glucose 91 MG/DL Total Protein 6.3 GM/DL Albumin 2.8 GM/DL Calcium Level 8.4 MG/DL Alkaline Phosphatase 118 U/L Aspartate Amino Transf (AST/SGOT) 42 U/L Alanine Aminotransferase (ALT/SGPT) 181 U/L Total Bilirubin 0.7 MG/DL Sodium Level 139 MEQ/L Potassium Level 3.7 MEQ/L Chloride Level 104 MEQ/L Carbon Dioxide Level 29.7 MEQ/L Anion Gap 5 MEQ/L Estimat Glomerular Filtration Rate 112 ML/MIN Objective Remarks GENERAL: Resting comfortably. SKIN: Warm and dry. HEAD: Atraumatic. Normocephalic. EYES: Pupils equal and round. No scleral icterus. No injection or drainage. ENT: No nasal bleeding or discharge. Mucous membranes pink and moist. NECK: Trachea midline. No JVD. CARDIOVASCULAR: Regular rate and rhythm. No murmur appreciated. RESPIRATORY: No accessory muscle use. Clear to auscultation. Breath sounds equal bilaterally. GASTROINTESTINAL: Abdomen is soft. Nontender. No guarding or rebound. Normal bowel sounds. MUSCULOSKELETAL: Extremities without clubbing, cyanosis, or edema. No obvious deformities. NEUROLOGICAL: Awake and alert. No obvious cranial nerve deficits. Motor grossly within normal limits. Five out of 5 muscle strength in the arms and legs. Normal speech. PSYCHIATRIC: Appropriate mood and affect; insight and judgment normal. Medications and IVs Current Medications Medications (Trade) Dose Ordered Sig/Salvatore Route Start Time Stop Time Status Last Admin Dextrose/Sodium Chloride 1,000 ml @ 60 mls/hr [id number] IV 06/21/17 05:15 06/24/17 21:19 (NS Flush) 2 ml UNSCH PRN IV FLUSH 06/21/17 05:30 (NS Flush) 2 ml BID IV FLUSH 06/21/17 09:00 06/23/17 19:25 (Tylenol) 650 mg Q4H PRN PO 06/21/17 05:30 06/24/17 08:05 (Zofran Inj) 4 mg Q6H PRN IVP 06/21/17 05:30 (Narcan Inj) 0.4 mg UNSCH PRN IV PUSH 06/21/17 05:30 (Dulcolax Supp) 10 mg DAILY PRN RECTAL 06/21/17 05:30 (Depakote Er) 1,000 mg HS PO 06/21/17 21:00 06/24/17 21:21 Patient Own Medication PT OWN MED: FLUVOXAM... HS PO 06/21/17 21:00 Future Hold (Desyrel) 100 mg HS PO 06/21/17 21:00 06/24/17 21:21 (Aspirin Chew) 81 mg DAILY CHEW 06/21/17 12:15 06/25/17 08:50 (ZyrTEC) 10 mg DAILY PO 06/21/17 12:15 06/25/17 08:51 (Lopressor) 50 mg DAILY PO 06/21/17 12:15 06/25/17 08:51 (Protonix) 40 mg DAILY PO 06/21/17 12:15 06/25/17 08:51 (Morphine Inj) 2 mg Q6H PRN IV PUSH 06/23/17 11:00 06/25/17 03:30 Ciprofloxacin/ Dextrose 200 ml @ 200 mls/hr Q12H IV 06/23/17 13:00 06/25/17 00:38 Metronidazole 100 ml @ 100 mls/hr Q8H IV 06/24/17 21:00 06/25/17 14:05 A/P Assessment and Plan Ileus/ SBO Improved. The patient has a history of diverticulitis status post colostomy placement and reversal of colostomy. He presents with abdominal pain, distention and constipation. CT scan showed: Abnormal dilated loops of small bowel are identified without well-defined transition point however distal loops are decompressed and the findings can be seen with an ileus or developing small bowel obstruction. Colorectal surgery consult appreciated. KUB 06/23/17 normal. - at this time having bowel movements. asked for HIDA scan and found non visualization of the Gallbladder. seen by General electronic data interchange specialist recommended Laparoscopic evaluation and Cholecystectomy if indicated the patient is improving his condition at this time no pain, and refusing any procedure, wants to go home and follow with his Primary specialists at [facility]. I agree will continue Flagyl and Cipro and follow as outpatient. Fever improved, also trending down his Liver function, and HIDA scan non visualized Gallbladder, consistent with Cholecystitis recommended for surgical intervention for tomorrow but the patient refused, will continue Ciprofloxacin and Flagyl cultures negative in 2 days. Atrial fibrillation Sinus rhythm on no anticoagulation as per patient he has this paroxysmal but not for a long time, he had some episodes while hospitalized he does not accept anticoagulation at this time, he is sinus rhythm will follow with his physicians at [facility] Thrombocytopenia The patient's platelet count seems to have fluctuated in the past. No evidence of bleeding. - Follow CBC as needed. PPx: SCDs patient refused Surgical intervention discharge home and follow by [facility]. Discharge Planning patient refusing any procedure, no pain, afebrile, having BMs. notified to come if continue with any symptoms. Garrick Parks MD Jun 25, 2017 14:25
--- NOTE | 2017-06-25 14:30 | HHI.DS ---
Discharge Summary Admission Date Jun 23, 2017 at 17:08 Discharge Date: Jun 25, 2017 Admitting Diagnosis ileus vs SBO (1) Ileus ICD Code: K56.7 - Ileus, unspecified Diagnosis: Principal Status: Acute (2) Abdominal pain ICD Code: R10.9 - Unspecified abdominal pain Diagnosis: Principal Status: Acute Procedures HIDA scan Brief History - From Admission The patient is a 61-year-old male with a past medical history of diverticulitis status post colostomy and reversal who is presenting to the hospital with abdominal pain and constipation. The patient says that about a year and a half ago he had diverticulitis and had to have a colostomy placed. That has since been reversed. He says recently he has had another abdominal infection which was treated with antibiotics. He said that on Friday night he had a salad with small items and it and after that his stomach started to get swollen. He had abdominal pain in the lower portion of his stomach that he rates as a 5 out of 10 that is rather constant. He has been constipated since then as well. He has not been passing any gas. He does endorse nausea. He feels like he has had fevers on and off but has not measured his temperature. CBC/BMP: 06/25/17 0416 06/25/17 0416 Significant Findings Laboratory Tests Test 06/23/17 07:09 06/23/17 11:10 06/23/17 13:20 06/23/17 16:42 Hematocrit 38.2 % (39.0-51.0) Platelet Count 99 TH/MM3 (150-450) Neutrophils (%) (Auto) 75.2 % (16.0-70.0) Monocytes (%) (Auto) 10.1 % (0.0-8.0) Lymphocytes # (Auto) 0.5 TH/MM3 (1.0-4.8) Platelet Estimate LOW (NORMAL) Albumin 2.9 GM/DL (3.4-5.0) Calcium Level 8.3 MG/DL (8.5-10.1) Alkaline Phosphatase 144 U/L (45-117) Aspartate Amino Transf (AST/SGOT) 156 U/L (15-37) Alanine Aminotransferase (ALT/SGPT) 330 U/L (12-78) Total Bilirubin 1.8 MG/DL (0.2-1.0) Test 06/24/17 04:36 06/24/17 14:20 06/25/17 04:16 White Blood Count 3.0 TH/MM3 (4.0-11.0) 3.7 TH/MM3 (4.0-11.0) Red Blood Count 4.43 MIL/MM3 (4.50-5.90) Hematocrit 37.7 % (39.0-51.0) Platelet Count 90 TH/MM3 (150-450) 98 TH/MM3 (150-450) Monocytes (%) (Auto) 11.2 % (0.0-8.0) 14.8 % (0.0-8.0) Lymphocytes # (Auto) 0.5 TH/MM3 (1.0-4.8) 0.9 TH/MM3 (1.0-4.8) Eosinophils (%) (Auto) 6.3 % (0.0-4.0) Band Neutrophils % 13 % (0-6) Monocytes % 12 % (0-8) Platelet Estimate LOW (NORMAL) Total Protein 6.3 GM/DL (6.4-8.2) Albumin 2.8 GM/DL (3.4-5.0) Calcium Level 8.4 MG/DL (8.5-10.1) Alkaline Phosphatase 118 U/L (45-117) Aspartate Amino Transf (AST/SGOT) 42 U/L (15-37) Alanine Aminotransferase (ALT/SGPT) 181 U/L (12-78) Imaging Last Impressions Hepatobiliary Scan Nuclear Medicine 06/24/17 0000 Signed Impressions: Service Date/Time: Saturday, June 24, 2017 10:19 - CONCLUSION: 1. No activity demonstrated in the gallbladder at 60 minutes. Ben Casey MD Abdomen X-Ray 06/23/17 0600 Signed Impressions: Service Date/Time: Friday, June 23, 2017 04:21 - CONCLUSION: No dilated loops of small or large bowel. Terry Merino MD Liver Ultrasound 06/23/17 0000 Signed Impressions: Service Date/Time: Friday, June 23, 2017 16:08 - CONCLUSION: 1. Hepatic steatosis. 2. Inspissated bile versus gravel within the gallbladder which is associate with mild gallbladder wall thickening. 3. Mildly dilated common bile duct 4. Mild hepatosplenomegaly. Aurelio Kingsley MD Chest X-Ray 06/23/17 0000 Signed Impressions: Service Date/Time: Friday, June 23, 2017 04:19 - CONCLUSION: The lungs are clear. Terry Merino MD Abdomen/Pelvis CT 06/20/17 0000 Signed Impressions: Service Date/Time: Wednesday, June 21, 2017 01:39 - CONCLUSION: Abnormal dilated loops of small bowel are identified without well-defined transition point however distal loops are decompressed and the findings can be seen with an ileus or developing small bowel obstruction. Dereje Amezcua MD PE at Discharge GENERAL: Resting comfortably. SKIN: Warm and dry. HEAD: Atraumatic. Normocephalic. EYES: Pupils equal and round. No scleral icterus. No injection or drainage. ENT: No nasal bleeding or discharge. Mucous membranes pink and moist. NECK: Trachea midline. No JVD. CARDIOVASCULAR: Regular rate and rhythm. No murmur appreciated. RESPIRATORY: No accessory muscle use. Clear to auscultation. Breath sounds equal bilaterally. GASTROINTESTINAL: Abdomen is soft. Nontender. No guarding or rebound. Normal bowel sounds. MUSCULOSKELETAL: Extremities without clubbing, cyanosis, or edema. No obvious deformities. NEUROLOGICAL: Awake and alert. No obvious cranial nerve deficits. Motor grossly within normal limits. Five out of 5 muscle strength in the arms and legs. Normal speech. PSYCHIATRIC: Appropriate mood and affect; insight and judgment normal. Hospital Course This is a pleasant 61 y/o male with Diverticulitis status post Colostomy and reversal Colostomy, who came to ER with Abdominal pain and constipation, recent abdominal infection treated with antibiotics, yesterday had Fever 105F, having bowel movements. stable in his bedroom, his laboratory demonstrated acute worsening of liver enzymes, status post HIDA scan performed by forensic specialist found non visualization of the gallbladder. no complaint by patient giving sample for C Diff recommended to hospitalize patient. 06/25: Seen in his office in the presence of nurse Miss Bryant, patient was already seen by General forensic specialist recommended Laparoscopic evaluation for probable Cholecystectomy if indicated, the patient refused this procedure due to that his liver enzymes are trending down with medical management, he wants to go home and follow up with his primary physicians at [facility], I agree will continue antibiotics by mouth, follow with PCP in two to three days, no nausea, vomit or diarrhea. pain improved. Assessment and Plan Ileus/ SBO Improved. The patient has a history of diverticulitis status post colostomy placement and reversal of colostomy. He presents with abdominal pain, distention and constipation. CT scan showed: Abnormal dilated loops of small bowel are identified without well-defined transition point however distal loops are decompressed and the findings can be seen with an ileus or developing small bowel obstruction. Colorectal surgery consult appreciated. KUB 06/23/17 normal. - at this time having bowel movements. asked for HIDA scan and found non visualization of the Gallbladder. seen by General forensic specialist recommended Laparoscopic evaluation and Cholecystectomy if indicated the patient is improving his condition at this time no pain, and refusing any procedure, wants to go home and follow with his Primary specialists at [facility]. I agree will continue Flagyl and Cipro and follow as outpatient. Fever improved, also trending down his Liver function, and HIDA scan non visualized Gallbladder, consistent with Cholecystitis recommended for surgical intervention for tomorrow but the patient refused, will continue Ciprofloxacin and Flagyl cultures negative in 2 days. Atrial fibrillation Sinus rhythm on no anticoagulation as per patient he has this paroxysmal but not for a long time, he had some episodes while hospitalized he does not accept anticoagulation at this time, he is sinus rhythm will follow with his physicians at [facility] Thrombocytopenia The patient's platelet count seems to have fluctuated in the past. No evidence of bleeding. - Follow CBC as needed. PPx: SCDs patient refused Surgical intervention discharge home and follow by [facility]. Discharge Planning patient refusing any procedure, no pain, afebrile, having BMs. notified to come if continue with any symptoms. Pt Condition on Discharge: Good Discharge Disposition: Discharge Home Discharge Time: <= 30 minutes Discharge Instructions DIET: Follow Instructions for: Heart Healthy Diet Activities you can perform: Regular-No Restrictions Garrick Parks MD Jun 25, 2017 14:30
--- NOTE | 2017-06-25 19:55 | HHI.PR ---
Subjective Subjective Notes no fevers, pain unchanged, labs improving npo Objective Vitals/I&O Vital Signs Date Time Temp Pulse Resp B/P (MAP) Pulse Ox O2 Delivery O2 Flow Rate FiO2 06/25/17 11:48 50 06/25/17 11:39 98.4 18 136/81 (99) 98 Labs Laboratory Tests Test 06/25/17 04:16 White Blood Count 3.7 Red Blood Count 4.62 Hemoglobin 13.5 Hematocrit 39.4 Mean Corpuscular Volume 85.3 Mean Corpuscular Hemoglobin 29.2 Mean Corpuscular Hemoglobin Concent 34.2 Red Cell Distribution Width 14.1 Platelet Count 98 Mean Platelet Volume 8.5 Neutrophils (%) (Auto) 52.7 Lymphocytes (%) (Auto) 25.2 Monocytes (%) (Auto) 14.8 Eosinophils (%) (Auto) 6.3 Basophils (%) (Auto) 1.0 Neutrophils # (Auto) 1.9 Lymphocytes # (Auto) 0.9 Monocytes # (Auto) 0.5 Eosinophils # (Auto) 0.2 Basophils # (Auto) 0.0 CBC Comment AUTO DIFF Differential Total Cells Counted 100 Neutrophils % (Manual) 56 Band Neutrophils % 13 Lymphocytes % 16 Monocytes % 12 Eosinophils % 2 Basophils % 1 Neutrophils # (Manual) 2.6 Differential Comment FINAL DIFF MANUAL Platelet Estimate LOW Platelet Morphology Comment NORMAL Blood Urea Nitrogen 10 Creatinine 0.71 Random Glucose 91 Total Protein 6.3 Albumin 2.8 Calcium Level 8.4 Alkaline Phosphatase 118 Aspartate Amino Transf (AST/SGOT) 42 Alanine Aminotransferase (ALT/SGPT) 181 Total Bilirubin 0.7 Sodium Level 139 Potassium Level 3.7 Chloride Level 104 Carbon Dioxide Level 29.7 Anion Gap 5 Estimat Glomerular Filtration Rate 112 Date/Time Source Procedure Growth Status 06/23/17 13:30 Blood Peripheral Aerobic Blood Culture - Preliminary NO GROWTH IN 2 DAYS Resulted 06/23/17 13:30 Blood Peripheral Anaerobic Blood Culture - Preliminary NO GROWTH IN 2 DAYS Resulted 06/24/17 14:20 Stool Stool - Final NO ENTERIC PATHOGENS DETECTED BY PCR... Complete Radiology Last 48 hours Impressions Hepatobiliary Scan Nuclear Medicine 06/24/17 0000 Signed Impressions: Service Date/Time: Saturday, June 24, 2017 10:19 - CONCLUSION: 1. No activity demonstrated in the gallbladder at 60 minutes. Ben Casey MD Abdomen X-Ray 06/23/17 0600 Signed Impressions: Service Date/Time: Friday, June 23, 2017 04:21 - CONCLUSION: No dilated loops of small or large bowel. Terry Merino MD Liver Ultrasound 06/23/17 0000 Signed Impressions: Service Date/Time: Friday, June 23, 2017 16:08 - CONCLUSION: 1. Hepatic steatosis. 2. Inspissated bile versus gravel within the gallbladder which is associate with mild gallbladder wall thickening. 3. Mildly dilated common bile duct 4. Mild hepatosplenomegaly. Aurelio Kingsley MD Chest X-Ray 06/23/17 0000 Signed Impressions: Service Date/Time: Friday, June 23, 2017 04:19 - CONCLUSION: The lungs are clear. Terry Merino MD Abdomen: Other (soft +ttp ruq to deep palpation, +ttp RLQ at incisional scar) A/P Assessment and Plan fever, abnormal LFTs, cholelithiasis, concern for acute cholecystitis PLAN On deep palpation of RUQ pt noted to have reproducible pain. I offered dx lap with possible lap dodie. Pts labs are improving but no definitive expanation as to why they were elevated and fever w/u negative thus far HIDA +, US shows stones/sludge with thinkening of gallbladder wall. abx ivf pain control will continue to follow Grover Soto MD Jun 25, 2017 19:55
== END 2017-06-25 18:25 | disposition home or self-care (01) | DRG 390 ==
LOC: NEPE 22:18 → NEDA 06-21 05:21 → NEPFCDU 06-21 06:38 → OBSVTOIN 06-23 17:08
PROVIDERS: ADMIT Internal Medicine; ATTEND Internal Medicine
DX: K56.7 Ileus, unspecified (principal); D69.6 Thrombocytopenia, unspecified; I48.91 Unspecified atrial fibrillation; Z79.82 Long term (current) use of aspirin; K81.9 Cholecystitis, unspecified; F32.9 Major depressive disorder, single episode, unspecified
CPT/HCPCS: 71010; 74020; 74177; 76705; 78226; 80048; 80053; 80074; 81001; 82948; 83605; 83690; 84484; 85007; 85025; 85027; 87040; 87493; 87506; A9537; C9113; J0744; J2270; J2405; Q9963; Q9967